=== PATIENT | female | born 1970 | race Caucasian/White ===

== ENCOUNTER → 2016-05-10 | Outpatient (CLI) | payer OTHER ==
[~2016-05-10] MED LIST: ALBUAER2 INH; LSNP/30 PO; MCR5 PO; METF-384 PO; RIVA1TAB4 PO; SIMV10TA2 PO; SITA1TAB27 PO; SNG10 PO; SYMIN160 INH; VLT500 PO; VNTHFA/IN INH; ZCR40 PO
[2016-05-10 18:16] LABS: ALB/GLOB RATIO 0.9 (0.9-2); ALKALINE PHOSPHATASE 74 U/L (45-117); ALT/SGPT 23 U/L (12-78); AST/SGOT 14 U/L (15-37); BLOOD UREA NITROGEN 14 mg/dl (7-18); BUN/CREATININE RATIO 18.1 (10-20); CALCIUM 8.9 mg/dl (8.5-10.1); CARBON DIOXIDE 26 mmol/L (21-32); CHLORIDE 105 mmol/L (98-107); CHOLESTEROL 126 mg/dl (0-200); CHOLESTEROL/HDL RATIO 1.8; CREATININE 0.77 mg/dl (0.60-1.20); GLUCOSE 224 mg/dl (70-99); HDL CHOLESTEROL 71 mg/dl; LDL CHOLESTEROL CALCULATED 24 mg/dl; POTASSIUM 4.8 mmol/L (3.5-5.1); SODIUM 140 mmol/L (136-145); THYROID STIMULATING HORMONE 0.619 uIu/ml (0.300-4.500); TRIGLYCERIDES 155 mg/dl (0-150); VERY LOW DENSITY LIPOPROT CALC 31 mg/dl
[2016-05-10 18:26] LABS: RATIO 94.5 mcg/mg (0-30.0)
[2016-05-11 06:14] LABS: ESTIMATED AVERAGE GLUCOSE 128 mg/dl; HA1C FLAG Normal (Normal)
== END | disposition home or self-care (01) ==
LOC: C.LAB1850 16:20
PROVIDERS: ATTEND Internal Medicine Endocrinology, Diabetes & Metabolism
DX: E11.29 Type 2 diabetes mellitus with other diabetic kidney complication (principal); E11.65 Type 2 diabetes mellitus with hyperglycemia; R80.9 Proteinuria, unspecified

== ENCOUNTER → 2016-07-01 | Outpatient (CLI) | payer OTHER ==
--- NOTE | 2016-07-01 16:10 | DIAGNOSTIC IMAGING REPORT ---
AP PELVIS AND BILATERAL HIPS 5 VIEWS CLINICAL HISTORY: Low back pain and bilateral hips/leg pain. COMPARISON STUDY: No previous studies for comparison. FINDINGS: No fractures are visualized. The joint space of each hip appears well-preserved for age. There are no erosive or destructive changes. Degenerative changes present within the lower lumbar spine IMPRESSION: Degenerative changes within the lower lumbar spine. Otherwise unremarkable pelvis and hips for age Electronically signed by: Raúl Cohen M.D. 07/01/2016 4:09 PM Dictated Date/Time: 07/01/2016 4:08 PM
--- NOTE | 2016-07-01 16:14 | DIAGNOSTIC IMAGING REPORT ---
SI JOINTS 3 OR MORE VIEWS CLINICAL HISTORY: Low back pain with bilateral radiculopathy. COMPARISON STUDY: CT of the abdomen and pelvis February 17, 2014. FINDINGS: The sacroiliac joints are intact without evidence for ankylosis. No fracture or suspicious lesion is identified by radiography. There is minimal arthritis of the sacroiliac joints. IMPRESSION: Minimal arthritis of the sacroiliac joints. Electronically signed by: Silvino Arreaga M.D. 07/01/2016 4:12 PM Dictated Date/Time: 07/01/2016 4:11 PM
== END | disposition home or self-care (01) ==
LOC: C.RAD1850 15:34
PROVIDERS: ATTEND Nurse Practitioner
DX: M54.40 Lumbago with sciatica, unspecified side (principal)

== ENCOUNTER → 2016-08-23 | Outpatient (CLI) | payer OTHER ==
[2016-08-23 17:59] LABS: ESTIMATED AVERAGE GLUCOSE 134 mg/dl; HA1C FLAG Normal (Normal)
[2016-08-23 18:00] LABS: ALT/SGPT 24 U/L (12-78); CREATININE 0.76 mg/dl (0.60-1.20)
== END | disposition home or self-care (01) ==
LOC: C.LABBFT 15:44
PROVIDERS: ATTEND Physician Assistant
DX: E11.65 Type 2 diabetes mellitus with hyperglycemia (principal)

== ENCOUNTER 2016-12-21 17:05 | Observation (INO) | payer OTHER ==
[~2016-12-21] VITALS: Ht 152.4 cm; Wt 78.0 kg
[~2016-12-21 17:05] MED LIST changes: -VNTHFA/IN INH; -ZCR40 PO
[2016-12-21] MEDS ORDERED: SODIUM CHLORIDE 0.9% 1000ML 1,000 ML IV SCH (17:40)
[2016-12-21 18:18] LABS: BASO % 0.4 %; BASO ABS # 0.03 K/uL (0-0.2); COMPLETE YES; EOS % 2.6 %; HEMATOCRIT 42.8 % (37-47); IG% 0.3 %; LYMPH % 30.4 %; LYMPH ABS # 2.08 K/uL (1.2-3.4); MEAN CELL VOLUME 91.6 fL (80-100); MEAN CORPUSCULAR HEMOGLOBIN 31.5 pg (25-34); MEAN CORPUSCULAR HGB CONC 34.3 g/dl (32-36); MEAN PLATELET VOLUME 9.9 fL (7.4-10.4); MONO % 7.3 %; PLATELET COUNT 179 K/uL (130-400); RED BLOOD COUNT 4.67 M/uL (4.2-5.4); WHITE BLOOD COUNT 6.85 K/uL (4.8-10.8)
--- NOTE | 2016-12-21 18:21 | DIAGNOSTIC IMAGING REPORT ---
HEAD CT NONCONTRAST CT DOSE: 537.48 mGy.cm HISTORY: Stroke symptoms. TECHNIQUE: Multiaxial CT images of the head were performed without the use of intravenous contrast. Automated exposure control was utilized for this study. A dose lowering technique was utilized adhering to the principles of ALARA. Comparison: None. Findings: Mild mucosal thickening within the ethmoid air cells. The mastoid air cells are clear. The calvarium and skull base are intact. The ventricles and sulci are within normal limits. There is no mass, hematoma, midline shift, or acute infarct. Impression: No acute intracranial abnormality. Electronically signed by: Mark Simmons M.D. 12/21/2016 6:19 PM Dictated Date/Time: 12/21/2016 6:17 PM
[2016-12-21 18:29] LABS: PROTHROMBIN TIME (PATIENT) 10.6 SECONDS (9.0-12.0)
[2016-12-21 18:43] LABS: BLOOD UREA NITROGEN 17 mg/dl (7-18); BUN/CREATININE RATIO 28.4 (10-20); CALCIUM 8.5 mg/dl (8.5-10.1); CARBON DIOXIDE 29 mmol/L (21-32); CHLORIDE 105 mmol/L (98-107); GLUCOSE 158 mg/dl (70-99); POTASSIUM 4.3 mmol/L (3.5-5.1); SODIUM 138 mmol/L (136-145)
[2016-12-21] MEDS ORDERED: VNTHFA/IN INH (18:46)
[2016-12-21] MEDS ORDERED: SNG10 PO (18:46)
[2016-12-21] MEDS ORDERED: ZCR40 PO (18:46)
[2016-12-21 18:47] LABS: CKMB/CK RATIO 1.8 (0-3.0)
[2016-12-21 19:15] LABS: URINE APPEARANCE CLEAR (CLEAR); URINE BILIRUBIN NEG (NEG); URINE COLOR YELLOW; URINE NITRITE NEG (NEG); URINE SPECIFIC GRAVITY 1.016 (1.000-1.030); UROBILINOGEN NEG (NEG); ZZUR CULT IF INDIC CLEAN CATCH NO
[2016-12-21 19:16] LABS: MANUAL MICROSCOPIC REQUIRED? NO; REVIEW REQ? NO
--- NOTE | 2016-12-21 19:49 | History and Physical ---
History & Physical Date & Time of Service: Dec 21, 2016 at 19:39 Chief Complaint: Dizzy, Nausea, Vision Blurry Primary Care Physician: Rehan Horner M.D. History of Present Illness Source: patient 46 y/o F Hx HTN, DM2, hypercoagulable state, smoker. Pt states that since this AM she has felt like she was drunk. She has had intermittent difficulty with balance, vision and has exhibited slurred speech as well. Her symptoms are not apparent on arrival to the ER. She denies CP, SOB, N/V, dysuria. Initial EKG reveals a RBBB which is new for this pt. 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 Smoking Status: Current Every Day Smoker Drug Use: none Occupational Status: employed Multi-Drug Resistant Organisms History of MDRO: No Allergies Coded Allergies: No Known Allergies (Verified , 12/21/16) Home Medications Scheduled Albuterol Hfa (Ventolin Hfa), 2-4 PUFFS INH Q6H Budesonide/Formoterol Fumarate (Symbicort 160/4.5 Inhaler), 2 PUFF INH BID Lisinopril (Zestril), 30 MG PO BID Metformin Hcl (Glucophage), 1,000 MG PO BID Montelukast Sod (Montelukast Sodium), 1 TAB PO DAILY Rivaroxaban (Xarelto), 20 MG PO HS Simvastatin (Simvastatin), 1 TAB PO HS Valacyclovir HCl (Valacyclovir HCl), 500 MG PO DAILY Review of Systems Constitutional: No fever, No chills, No sweats Eyes: + worsening of vision, No eye pain ENT: No hearing loss, No unusual epistaxis, No nasal symptoms Respiratory: No cough, No sputum, No wheezing Cardiovascular: No chest pain, No orthopnea, No PND Abdomen: No pain, No nausea, No vomiting Musculoskeletal: No joint pain Genitourinary - Female: No dysuria, No urinary frequency, No urinary urgency Neurologic: + vertigo, + balance problems, + problem reported (slurred speech reported ), No memory loss, No paralysis, No weakness Psychiatric: No depression symptoms Endocrine: No fatigue Hematologic / Lymphatic: No abnormal bleeding/bruising Integumentary: No rash Allergic / Immunologic: No environmental allergies Physical Exam Vital Signs Date Time Temp Pulse Resp B/P (MAP) Pulse Ox O2 Delivery O2 Flow Rate FiO2 12/21/16 19:31 86 12/21/16 19:00 86 18 130/86 96 Room Air 12/21/16 18:00 86 141/88 80 131/87 89 120/82 12/21/16 18:00 96 Room Air 12/21/16 17:10 36.8 92 18 136/85 93 Room Air General Appearance: WD/WN, no apparent distress Head: normocephalic Eyes: normal inspection ENT: normal ENT inspection, pharynx normal Neck: supple, no JVD Respiratory/Chest: chest non-tender, lungs clear, normal breath sounds Cardiovascular: regular rate, rhythm, no edema, no gallop Abdomen/GI: normal bowel sounds, non tender, soft Back: normal inspection, no CVA tenderness, no muscle spasm, normal range of motion Extremities/Musculoskelatal: normal inspection, no calf tenderness, normal capillary refill, no pedal edema, normal range of motion 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, no motor/sensory deficits, alert, normal mood/affect, normal reflexes, oriented x 3 Skin: normal color, warm/dry, no rash Diagnostics Laboratory Results Results Past 24 Hours Test 12/21/16 17:45 12/21/16 17:50 12/21/16 18:23 Range/Units Urine Color YELLOW Urine Appearance CLEAR CLEAR Urine pH 7.0 4.5-7.5 Urine Specific [place] 1.016 1.000-1.030 Urine Protein NEG NEG Urine Glucose (UA) TRACE NEG Urine Ketones NEG NEG Urine Occult Blood NEG NEG Urine Nitrite NEG NEG Urine Bilirubin NEG NEG Urine Urobilinogen NEG NEG Urine Leukocyte Esterase NEG NEG White Blood Count 6.85 4.8-10.8 K/uL Red Blood Count 4.67 4.2-5.4 M/uL Hemoglobin 14.7 12.0-16.0 g/dL Hematocrit 42.8 37-47 % Mean Corpuscular Volume 91.6 80-100 fL Mean Corpuscular Hemoglobin 31.5 25-34 pg Mean Corpuscular Hemoglobin Concent 34.3 32-36 g/dl Platelet Count 179 130-400 K/uL Mean Platelet Volume 9.9 7.4-10.4 fL Neutrophils (%) (Auto) 59.0 % Lymphocytes (%) (Auto) 30.4 % Monocytes (%) (Auto) 7.3 % Eosinophils (%) (Auto) 2.6 % Basophils (%) (Auto) 0.4 % Neutrophils # (Auto) 4.04 1.4-6.5 K/uL Lymphocytes # (Auto) 2.08 1.2-3.4 K/uL Monocytes # (Auto) 0.50 0.11-0.59 K/uL Eosinophils # (Auto) 0.18 0-0.5 K/uL Basophils # (Auto) 0.03 0-0.2 K/uL RDW Standard Deviation 46.1 36.4-46.3 fL RDW Coefficient of Variation 13.8 11.5-14.5 % Immature Granulocyte % (Auto) 0.3 % Immature Granulocyte # (Auto) 0.02 0.00-0.02 K/uL Prothrombin Time 10.6 9.0-12.0 SECONDS Prothromb Time International Ratio 1.0 0.9-1.1 Activated Partial Thromboplast Time 27.1 21.0-31.0 SECONDS Partial Thromboplastin Ratio 1.0 Sodium Level 138 136-145 mmol/L Potassium Level 4.3 3.5-5.1 mmol/L Chloride Level 105 98-107 mmol/L Carbon Dioxide Level 29 21-32 mmol/L Anion Gap 4.0 3-11 mmol/L Blood Urea Nitrogen 17 7-18 mg/dl Creatinine 0.60 0.60-1.20 mg/dl Est Creatinine Clear Calc Drug Dose 105.9 ml/min Estimated GFR () 124.9 Estimated GFR (Non- 107.8 BUN/Creatinine Ratio 28.4 10-20 Random Glucose 158 70-99 mg/dl Calcium Level 8.5 8.5-10.1 mg/dl Total Creatine Kinase 62 26-192 U/L Creatine Kinase MB 1.1 0.5-3.6 ng/ml Creatine Kinase MB Ratio 1.8 0-3.0 Troponin I < 0.015 0-0.045 ng/ml Bedside Glucose 132 70-90 mg/dl Diagnostic Radiology Findings: Mild mucosal thickening within the ethmoid air cells. The mastoid air cells are clear. The calvarium and skull base are intact. The ventricles and sulci are within normal limits. There is no mass, hematoma, midline shift, or acute infarct. EKG Sinus RBBB - new Impression Assessment and Plan 46 y/o F Hx HTN, DM2, hypercoagulable state, smoker. Pt states that since this AM she has felt like she was drunk. She has had intermittent difficulty with balance, vision and has exhibited slurred speech as well. Her symptoms are not apparent on arrival to the ER. She denies CP, SOB, N/V, dysuria. Initial EKG reveals a RBBB which is new for this pt. 1) Vertigo - visual and speech disturbances - pt admitted with a CVA protocol - ASA added to her Xarelto, placed on a Statin- pending MRI/MRA, neuro consult. 2) DM - placed on SS 3) Asthma - cont prescribed inhalers - this more likely represents COPD 4) Hypercoagulable - DVT/PE - cont Xarelto 5) HTN - Lisinopril held for CVA r/o 6) Lectured extensively on the hazards of smoking 7) As she is diabetic and has a new RBBB we will obtain an echo Full code - Xarelto prophylaxis Total time for this admit including review of records , meds , EKG , imaging - discussion with pt and ER attending 36 min Level of Care Telemetry Resuscitation Status FULL RESUSCITATION VTE Prophylaxis Given or contraindicated: Unfractionated heparin SQ
[2016-12-21] MEDS ORDERED: PHARMACIST DISCHARGE MED REC CONSULT PRN (20:00)
[2016-12-21 20:05] LABS: THYROID STIMULATING HORMONE 0.769 uIu/ml (0.300-4.500)
[2016-12-21] MEDS ORDERED: ACETAMINOPHEN 325 MG TAB PO PRN (20:30)
[2016-12-21] MEDS ORDERED: ALUMINUM/MAGNESIUM/SIMETH (MAALOX MAX) 30 ML UDC PO PRN (20:30)
[2016-12-21] MEDS ORDERED: ONDANSETRON INJ 2 MG/ML 2 ML VIAL IV PRN (20:30)
[2016-12-21] MEDS ORDERED: MAGNESIUM HYDROXIDE SUSP 30 ML UDC PO PRN (20:30)
[2016-12-21] MEDS ORDERED: POLYETHYLENE (MIRALAX) 17 GM PACK PO PRN (20:45)
[2016-12-21] MEDS ORDERED: RIVAROXABAN 20 MG TAB PO SCH (21:00)
[2016-12-21] MEDS ORDERED: SIMVASTATIN 40 MG TAB PO SCH (21:00)
[2016-12-21] MEDS ORDERED: LISINOPRIL 10 MG TAB PO SCH (21:00)
[2016-12-21] MEDS ORDERED: IV FLUIDS COMPLETED PRN (21:15)
[2016-12-21] MEDS ORDERED: GADAVIST IV PRN (22:15)
[2016-12-21 22:25] VITALS: BP 120/76; PULSE 83; TEMP 36.4; Ht 152.4 cm; Wt 78.0 kg
--- NOTE | 2016-12-21 22:38 | DIAGNOSTIC IMAGING REPORT ---
Brain MRI WITHOUT CONTRAST HISTORY: Dizziness. Slurred speech. Stroke TECHNIQUE: Multiplanar multisequence MRI of the brain was performed without the use of contrast. COMPARISON STUDY: Head CT 12/21/2016. FINDINGS: No areas of restricted diffusion to suggest acute infarction. The midline structures are intact. There few scattered foci of T2 hyperintensity seen within the periventricular and subcortical white matter as well as the central cheri. Small retention cysts within the left maxillary sinus. Mild mucosal thickening within the left frontal sinus, ethmoid air cells, and sphenoid sinuses. The mastoid air cells are clear. The ventricles and sulci are within normal limits. The major vascular flow voids at the skull base are well-maintained. There is no mass, hematoma, or midline shift. The orbits are unremarkable. IMPRESSION: 1. No acute intracranial abnormality. 2. A few scattered punctate foci of T2 hyperintensity seen within the subcortical and periventricular white matter as well as the cheri. This is nonspecific but can be seen in the setting of mild microvascular ischemic change. A demyelinating disease, Lyme disease, or less likely vasculitis could also have a similar appearance. Electronically signed by: Mark Simmons M.D. 12/21/2016 10:36 PM Dictated Date/Time: 12/21/2016 10:29 PM
--- NOTE | 2016-12-21 22:42 | DIAGNOSTIC IMAGING REPORT ---
Brain MRA HISTORY: Dizziness Stroke - Attention to [place] of [place] TECHNIQUE: 3-D [id number] MRA of the brain was performed without contrast. COMPARISON STUDY: None. FINDINGS: Visualized intracranial internal carotid arteries, distal vertebral arteries, and basilar artery are widely patent. There is no significant stenosis, occlusion, or aneurysm seen within the bilateral ACAs, MCAs, or letter of credit clerk. IMPRESSION: No significant stenosis, occlusion, or aneurysm within the upper [place] of [place]. Electronically signed by: Mark Simmons M.D. 12/21/2016 10:40 PM Dictated Date/Time: 12/21/2016 10:36 PM
--- NOTE | 2016-12-21 22:45 | DIAGNOSTIC IMAGING REPORT ---
NECK MRA HISTORY: Dizziness. Slurred speech. Stroke TECHNIQUE: [id number] and gadolinium-enhanced MRA of the neck was performed both before and after the intravenous administration of contrast. All measurements were calculated based on NASCET criteria. COMPARISON STUDY: None. FINDINGS: The aortic arch and proximal great vessels are widely patent. There is no significant stenosis, occlusion, or dissection identified within the bilateral common carotid, internal carotid, or vertebral arteries. The right vertebral artery is slightly hypoplastic in comparison to the left. This is considered to be a normal variant. IMPRESSION: No significant stenosis, occlusion, or dissection identified within the carotid or vertebral arteries. Electronically signed by: Mark Simmons M.D. 12/21/2016 10:44 PM Dictated Date/Time: 12/21/2016 10:41 PM
[2016-12-21] MEDS: BUDESONIDE/FORMOTEROL FUMARATE 160/4.5 60 PUFFS/INHALER INH SCH (23:03)
[2016-12-21] MEDS: ALBUTEROL HFA 8 GM INHALER INH SCH (23:03)
[2016-12-21] MEDS ORDERED: LANTUS PER UNIT CHARGE SC STA (23:13)
[2016-12-21 23:45] VITALS: BP 134/79; PULSE 85; TEMP 36.4; O2SAT 91
[2016-12-22] MEDS ORDERED: GLUCAGON FOR INJ 1 MG VIAL SQ PRN (00:15)
[2016-12-22] MEDS ORDERED: DEXTROSE 50% 50 ML SYR IV PRN (00:15)
[2016-12-22] MEDS ORDERED: GLUCOSE 10 TABS/TUBE PO PRN (00:15)
[2016-12-22] MEDS ORDERED: GLUCOSE 40% GEL 15 GM TUBE PO PRN (00:15)
[2016-12-22] MEDS: INSULIN GLARGINE SOLOSTAR 100 UNITS/ML 3 ML PEN SC SCH ×2 (00:15→08:07)
--- NOTE | 2016-12-22 00:27 | EMERGENCY ROOM VISIT NOTE ---
History First contact with patient: 17:23 Chief Complaint: DIZZY Stated Complaint: ABNORMAL EKG, TIA Nursing Triage Summary: pt c/o dizziness, "feeling drunk," jittery, nausea, having hard time focusing since noon. "the inside of my head doesn't feel right." History of Present Illness The patient is a 46 year old female who presents to the Emergency Room via private vehicle coming by daughter with complaints of "dizzy, nausea, vision blurring". The patient states that on 11 AM today she developed dizziness, tripped, and noted that she was stumbling around and could barely get to the chair to sit down. She states that she was diabetic, and thought perhaps her blood sugar was low found to be 98. She ate some food, and was up to 120 was not feeling any better. She checked her blood pressure is 170/83. She states that she started feeling little bit better. She states that when she lays down she feels much more nauseous. She states that she feels like her insides are jittery. She has associated nausea. She also has an associated feeling of a fire pit in the middle of her stomach. She denies any fevers, chills, chest pain or shortness of breath. She currently takes Xarelto for clots in the leg. Review of Systems A complete 10-point Review of Systems was discussed with the patient, with pertinent positives and negatives listed in the History of Present Illness. All remaining Review of Systems questions can be considered negative unless otherwise specified. Past Medical/Surgical History Medical Problems: (1) Asthma (2) Diabetes (3) Dyslipidemia (4) EKG, abnormal (5) HTN (hypertension) (6) Nondisplaced fracture of left great toe (7) Personal history of DVT (deep vein thrombosis) (8) TIA (transient ischemic attack) (9) Work related injury Surgical Problems: (1) History of delivery Family History Diabetes mellitus Kidney disease Kidney stones Social History Smoking Status: Current Every Day Smoker Alcohol Use: none Drug Use: none Housing Status: lives with family Occupation Status: employed Current/Historical Medications Scheduled Albuterol Hfa (Ventolin Hfa), 2-4 PUFFS INH Q6H Budesonide/Formoterol Fumarate (Symbicort 160/4.5 Inhaler), 2 PUFF INH BID Lisinopril (Zestril), 30 MG PO BID Metformin Hcl (Glucophage), 1,000 MG PO BID Montelukast Sod (Montelukast Sodium), 1 TAB PO DAILY Rivaroxaban (Xarelto), 20 MG PO HS Simvastatin (Simvastatin), 1 TAB PO HS Valacyclovir HCl (Valacyclovir HCl), 500 MG PO DAILY Physical Exam Vital Signs Date Time Temp Pulse Resp B/P (MAP) Pulse Ox O2 Delivery O2 Flow Rate FiO2 12/21/16 19:31 86 12/21/16 19:00 86 18 130/86 96 Room Air 12/21/16 18:00 86 141/88 80 131/87 89 120/82 12/21/16 18:00 96 Room Air 12/21/16 17:10 36.8 92 18 136/85 93 Room Air Pain Rating (0-10): 0 Physical Exam VITAL SIGNS - Vital signs and nursing notes were reviewed.Stable. GENERAL - 46-year-old female appearing her stated age who is in no acute distress. Communicates well with provider and answers questions appropriately. SKIN - Without rashes. HEAD - NC/AT. EYES - PERRL with EOMI bilaterally. Sclera anicteric. EARS - No deformities of external structures noted on gross examination bilaterally. No pain elicited with palpation of the tragus bilaterally. External auditory canals without discharge or otorrhea. Tympanic membranes pearly garcia without retraction or bulging. No fluid or purulent material visualized behind the TM. Handle of malleus, umbo, cone of light, pars tensa/ flaccid all easily visualized. NOSE - Midline and without cyanosis. No epistaxis or purulent drainage noted. Septum midline without deviation or septal hematoma noted. MOUTH/OROPHARYNX - Without perioral cyanosis. Buccal mucosa pink and moist and without leukoplakia. Tongue midline with equal elevation of palate bilaterally. No tonsillar hypertrophy, erythema, or exudates noted. [] dentition noted. NECK - Neck with FROM. Supple to palpation. no lymphadenopathy noted. No nuchal rigidity. LUNGS - Chest wall symmetric without accessory muscle use, intercostals retractions, or central cyanosis. Normal vesicular breath sounds CTA B/L. No wheezes, rales, or rhonchi appreciated. CARDIAC - RRR with S1/S2. No murmur, rubs, or gallops appreciated. ABDOMEN - Abdominal contour without pulsations or visible masses. BS normoactive all four quadrants. No tenderness, palpable masses, hepatosplenomegaly, or ascites noted. EXTREMITIES - No clubbing or peripheral cyanosis. No pretibial edema present. She is neurovascularly intact in the extremities. +5/5 strength noted in UE/LE bilaterally. NEUROLOGIC - Cranial nerves II through XII grossly intact. Sensory intact to light touch throughout. Patellar reflexes +2/4. PSYCH - A&Ox3 and cooperates fully with examiner. Pt is very pleasant and interacts well with examiner. Medical Decision & Procedures ER Provider Diagnostic Interpretation: HEAD CT NONCONTRAST CT DOSE: 537.48 mGy.cm HISTORY: Stroke symptoms. TECHNIQUE: Multiaxial CT images of the head were performed without the use of intravenous contrast. Automated exposure control was utilized for this study. A dose lowering technique was utilized adhering to the principles of ALARA. Comparison: None. Findings: Mild mucosal thickening within the ethmoid air cells. The mastoid air cells are clear. The calvarium and skull base are intact. The ventricles and sulci are within normal limits. There is no mass, hematoma, midline shift, or acute infarct. Impression: No acute intracranial abnormality. Electronically signed by: Mark Simmons M.D. 12/21/2016 6:19 PM Dictated Date/Time: 12/21/2016 6:17 PM Laboratory Results 12/21/16 17:50 Red Blood Count 4.67, Mean Corpuscular Volume 91.6, Mean Corpuscular Hemoglobin 31.5, Mean Corpuscular Hemoglobin Concent 34.3, Mean Platelet Volume 9.9, Neutrophils (%) (Auto) 59.0, Lymphocytes (%) (Auto) 30.4, Monocytes (%) (Auto) 7.3, Eosinophils (%) (Auto) 2.6, Basophils (%) (Auto) 0.4, Neutrophils # (Auto) 4.04, Lymphocytes # (Auto) 2.08, Monocytes # (Auto) 0.50, Eosinophils # (Auto) 0.18, Basophils # (Auto) 0.03 12/21/16 17:50 Test 12/21/16 17:45 12/21/16 17:50 12/21/16 18:23 Urine Color YELLOW Urine Appearance CLEAR (CLEAR) Urine pH 7.0 (4.5-7.5) Urine Specific [place] 1.016 (1.000-1.030) Urine Protein NEG (NEG) Urine Glucose (UA) TRACE (NEG) Urine Ketones NEG (NEG) Urine Occult Blood NEG (NEG) Urine Nitrite NEG (NEG) Urine Bilirubin NEG (NEG) Urine Urobilinogen NEG (NEG) Urine Leukocyte Esterase NEG (NEG) White Blood Count 6.85 K/uL (4.8-10.8) Red Blood Count 4.67 M/uL (4.2-5.4) Hemoglobin 14.7 g/dL (12.0-16.0) Hematocrit 42.8 % (37-47) Mean Corpuscular Volume 91.6 fL (80-100) Mean Corpuscular Hemoglobin 31.5 pg (25-34) Mean Corpuscular Hemoglobin Concent 34.3 g/dl (32-36) Platelet Count 179 K/uL (130-400) Mean Platelet Volume 9.9 fL (7.4-10.4) Neutrophils (%) (Auto) 59.0 % Lymphocytes (%) (Auto) 30.4 % Monocytes (%) (Auto) 7.3 % Eosinophils (%) (Auto) 2.6 % Basophils (%) (Auto) 0.4 % Neutrophils # (Auto) 4.04 K/uL (1.4-6.5) Lymphocytes # (Auto) 2.08 K/uL (1.2-3.4) Monocytes # (Auto) 0.50 K/uL (0.11-0.59) Eosinophils # (Auto) 0.18 K/uL (0-0.5) Basophils # (Auto) 0.03 K/uL (0-0.2) RDW Standard Deviation 46.1 fL (36.4-46.3) RDW Coefficient of Variation 13.8 % (11.5-14.5) Immature Granulocyte % (Auto) 0.3 % Immature Granulocyte # (Auto) 0.02 K/uL (0.00-0.02) Prothrombin Time 10.6 SECONDS (9.0-12.0) Prothromb Time International Ratio 1.0 (0.9-1.1) Activated Partial Thromboplast Time 27.1 SECONDS (21.0-31.0) Partial Thromboplastin Ratio 1.0 Anion Gap 4.0 mmol/L (3-11) Est Creatinine Clear Calc Drug Dose 105.9 ml/min Estimated GFR () 124.9 Estimated GFR (Non- 107.8 BUN/Creatinine Ratio 28.4 (10-20) Calcium Level 8.5 mg/dl (8.5-10.1) Total Creatine Kinase 62 U/L (26-192) Creatine Kinase MB 1.1 ng/ml (0.5-3.6) Creatine Kinase MB Ratio 1.8 (0-3.0) Troponin I < 0.015 ng/ml (0-0.045) Thyroid Stimulating Hormone (TSH) 0.769 uIu/ml (0.300-4.500) Bedside Glucose 132 mg/dl (70-90) Medications Administered Medications (Trade) Dose Ordered Sig/Samara Route Start Time Stop Time Status Last Admin Dose Admin Sodium Chloride 1,000 ml @ 50 mls/hr Q20H IV 12/21/16 17:40 12/21/16 22:29 DC 12/21/16 18:28 50 MLS/HR Medical Decision Patient was seen and evaluated as above. After obtaining a thorough history and physical examination IV access was initiated, and the above workup was performed. Patient presents to us today with dizziness, as well as a sensation that she is drunk. She denies taking any illicit medications or drugs. She is sure she did not overdose on her medication. She is accompanied by her daughter. Bedside EKG reveals a new right bundle-branch block. No evidence of ST segment elevation myocardial infarction. CBC reveals no leukocytosis or anemia. Coags are normal. CMP reveals elevated glucose at 158. Otherwise unremarkable. TSH and remarkable. Troponin negative. Urine negative. CT of the head is negative for acute process. There is concern the patient may be experiencing CVA-like symptoms, however she is not a candidate for TPA as the time window has passed by the time she arrived to the hospital. There is also concern over her neurologic comorbidities that this could also be heart related. I do believe that the new right bundle-branch block and patient and management is warranted. This was discussed with the attending physician. Please refer to further documentation regarding her stay. In evaluation treatment this patient following differential diagnoses were entertained: CA, PE, TIA, vertigo, among others. Impression Primary Impression: Dizziness Additional Impression: EKG, abnormal Departure Information Dispostion Admitted as an inpatient Condition FAIR Referrals Rehan Horner M.D. (PCP) Forms HOME CARE DOCUMENTATION FORM, IMPORTANT VISIT INFORMATION Patient Instructions My [facility] Problem Qualifiers
[2016-12-22 03:02] VITALS: BP 92/57; PULSE 78; TEMP 36.8; O2SAT 90
[2016-12-22] MEDS: ALBUTEROL HFA 8 GM INHALER INH SCH (06:00)
[2016-12-22] MEDS ORDERED: INSULIN ASPART 100 UNITS/ML 3 ML PEN SC SCH (06:30)
[2016-12-22 07:39] VITALS: BP 127/77; PULSE 78; TEMP 36.4; O2SAT 96
[2016-12-22] MEDS: BUDESONIDE/FORMOTEROL FUMARATE 160/4.5 60 PUFFS/INHALER INH SCH (07:44)
[2016-12-22 07:48] LABS: ESTIMATED AVERAGE GLUCOSE 117 mg/dl; HA1C FLAG Normal (Normal)
[2016-12-22 08:00] VITALS: O2SAT 96
[2016-12-22 08:11] LABS: BASO % 0.5 %; BASO ABS # 0.03 K/uL (0-0.2); COMPLETE YES; EOS % 2.5 %; HEMATOCRIT 41.9 % (37-47); IG% 0.5 %; LYMPH % 27.3 %; LYMPH ABS # 1.56 K/uL (1.2-3.4); MEAN CELL VOLUME 92.3 fL (80-100); MEAN CORPUSCULAR HEMOGLOBIN 31.7 pg (25-34); MEAN CORPUSCULAR HGB CONC 34.4 g/dl (32-36); MONO % 8.2 %; PLATELET COUNT 159 K/uL (130-400); RED BLOOD COUNT 4.54 M/uL (4.2-5.4); WHITE BLOOD COUNT 5.71 K/uL (4.8-10.8)
[2016-12-22 08:41] LABS: CREATININE 0.64 mg/dl (0.60-1.20); POTASSIUM 4.3 mmol/L (3.5-5.1)
[2016-12-22] MEDS ORDERED: PERFLUTREN LIPID MICROSPHERE (DEFINITY) IV ONE (08:41)
[2016-12-22] MEDS ORDERED: ATORVASTATIN 20 MG TAB PO SCH ×2 (09:00→21:00)
[2016-12-22] MEDS ORDERED: ASPIRIN 81 MG ECTAB PO SCH ×2 (09:00→21:00)
[2016-12-22] MEDS ORDERED: MONTELUKAST SOD 10 MG TAB PO SCH ×2 (09:00→21:00)
--- NOTE | 2016-12-22 09:05 | Neurology Consultation ---
Neurology Consultation Date of Consultation: Dec 22, 2016. Attending Physician: Kvng Cam MD, PhD Primary Care Physician: Rehan Horner M.D. Reason for Consultation: Episode of dizziness and other symptoms potentially consistent with TIA History of Present Illness Source: patient, hospital records The patient is a 46-year-old female who presented to the emergency department yesterday complaining of an episode of dizziness with associated nausea and blurry vision that began yesterday morning at around 11 AM. She recalls having some difficulty walking and diaphoresis at that time as well. The majority of the symptoms resolved by the time she was evaluated in the emergency department although she continued to report nausea. Prior to symptom onset she had been working around the house and recalls working outside hanging clothes on a line. She does complain of some ear fullness although denies associated pain or hearing loss. Past medical history significant for asthma, diabetes mellitus, DVT currently taking Xarelto. Electrocardiogram reveals a right total branch block which is a new finding for her. A brain MRI reveals a few scattered foci of increased T2/FLAIR signal within the subcortical, periventricular, and pontine location most suggestive of chronic microvascular ischemic change. I reviewed the images as well as the radiologist's interpretation of this test and agree. The patient is an every day smoker and has other cardiovascular risk factors including hyperlipidemia and hypertension. An MRA of the head and neck are unremarkable. Past Medical/Surgical History Medical Problems: (1) Dizziness Status: Acute (2) Dyslipidemia Status: Chronic (3) HTN (hypertension) Status: Chronic (4) Personal history of DVT (deep vein thrombosis) Status: Chronic Family History Family history notable for diabetes mellitus Social History Smoking Status: Current every day smoker Drug Use: none Housing Status: lives with family Occupation Status: employed Allergies Coded Allergies: No Known Allergies (Verified , 12/21/16) Current Inpatient Medications Current Inpatient Medications Medications (Trade) Dose Ordered Sig/Samara Route Start Time Stop Time Status Last Admin Dose Admin Albuterol (Ventolin Hfa Inhaler) 2 puffs Q6 INH 12/22/16 00:00 01/21/17 00:00 Budesonide/ Formoterol Fumarate (Symbicort 160/ 4.5 Inh) 2 puffs BID INH 12/21/16 21:00 01/20/17 20:59 12/22/16 07:44 2 PUFFS Lisinopril (Zestril Tab) 30 mg BID PO 12/21/16 21:00 01/20/17 20:59 12/21/16 23:04 30 MG Montelukast Sodium (Singulair Tab) 10 mg DAILY PO 12/22/16 09:00 01/21/17 08:59 12/21/16 23:20 10 MG Rivaroxaban (Xarelto Tab) 20 mg HS PO 12/21/16 21:00 01/20/17 20:59 12/21/16 23:04 20 MG Simvastatin (Zocor Tab) 40 mg HS PO 12/21/16 21:00 01/20/17 20:59 12/21/16 23:03 40 MG Valacyclovir HCl (Valtrex Tab) 500 mg DAILY PO 12/22/16 09:00 01/01/17 08:59 12/21/16 23:19 500 MG Atorvastatin Calcium (Lipitor Tab) 20 mg QAM PO 12/22/16 09:00 01/21/17 08:59 Miscellaneous Information (Pharmacist Discharge Med Rec Consult) 1 ea UD PRN N/A 12/21/16 20:00 01/20/17 19:59 Aspirin (Ecotrin Tab) 81 mg QAM PO 12/22/16 09:00 01/21/17 08:59 Acetaminophen (Tylenol Tab) 650 mg Q4H PRN PO 12/21/16 20:30 01/20/17 20:29 Al Hydrox/Mg Hydrox/Simethicone (Maalox Max Susp) 15 ml Q4H PRN PO 12/21/16 20:30 01/20/17 20:29 Magnesium Hydroxide (Milk Of Magnesia Susp) 30 ml Q12H PRN PO 12/21/16 20:30 01/20/17 20:29 Ondansetron HCl (Zofran Inj) 4 mg Q6H PRN IV 12/21/16 20:30 01/20/17 20:29 Polyethylene (Miralax Powder Packet) 17 gm DAILY PRN PO 12/21/16 20:45 01/20/17 20:44 Miscellaneous (Iv Fluids Completed) 1 ea PRN PRN N/A 12/21/16 21:15 12/21/17 21:14 Gadobutrol (Gadavist) 7 mmol UD PRN IV 12/21/16 22:15 12/25/16 22:14 Insulin Aspart (novoLOG ASPART) SLIDING SCALE G... ACHS SC 12/22/16 06:30 01/21/17 06:29 12/22/16 08:06 3 UNITS Insulin Glargine (Lantus Solostar Pen) 10 units BID SC 12/22/16 00:15 01/21/17 00:14 12/22/16 08:07 10 UNITS Glucose (Glucose 40% Gel) 15-30 GRAMS 15 GRAMS... UD PRN PO 12/22/16 00:15 01/21/17 00:14 Glucose (Glucose Chew Tab) 4-8 Tablets 4 Tabl... UD PRN PO 12/22/16 00:15 01/21/17 00:14 Dextrose (Dextrose 50% 50ML Syringe) 25-50ML OF 50% DW IV FOR... UD PRN IV 12/22/16 00:15 01/21/17 00:14 Glucagon (Glucagon Inj) 1 mg UD PRN SQ 12/22/16 00:15 01/21/17 00:14 Review of Systems Constitutional: No fever or chills Eyes: No vision loss or diplopia ENT: As per history of present illness Cardiovascular: No chest pain or palpitations Neurological: As per history of present illness A full 10 point review of systems was obtained in this patient with pertinent positives and negatives described in the history of present illness and otherwise listed above. All remaining systems reviewed and are negative. Physical Exam Vital Signs (Past 24 Hrs): Date Time Temp Pulse Resp B/P (MAP) Pulse Ox O2 Delivery O2 Flow Rate FiO2 12/22/16 07:39 36.4 78 16 127/77 (94) 96 Room Air 12/22/16 04:00 Room Air 12/22/16 03:02 36.8 78 18 92/57 (69) 90 Room Air 12/22/16 00:00 Room Air 12/21/16 23:45 36.4 85 20 134/79 (97) 91 Room Air 12/21/16 22:25 36.4 83 20 120/76 Room Air 98.0 12/21/16 22:01 85 20 131/81 95 Room Air 12/21/16 19:31 86 12/21/16 19:00 86 18 130/86 96 Room Air 12/21/16 18:00 86 141/88 80 131/87 89 120/82 12/21/16 18:00 96 Room Air 12/21/16 17:10 36.8 92 18 136/85 93 Room Air The patient is a well-developed, well-nourished female. She is sitting up comfortably in bed. The patient is alert and oriented to person place and time. Recent and remote memory intact. Attention and concentration normal. Patient exhibits a normal spontaneous speech pattern. She exhibits an age-appropriate fund of knowledge and normal vocabulary. Visual roldan full to confrontation. Visual acuity normal. Pupils equal round reactive to light and accommodation. Eye movements normal. Facial sensation intact. There is no facial droop or facial weakness. Hearing intact to finger rub bilaterally. Palate elevates to midline. Shoulder shrug intact bilaterally. Tongue protrudes to midline. Sensation intact to light touch, temperature, vibration, and proprioception for the arms and legs. Deep tendon reflexes are intact and symmetrical for the arms and legs. There is no dysdiadochokinesia or dysmetria with finger to nose or heel to gutierrez. Ophthalmoscopic examination reveals normal-appearing optic disks and posterior segments. No papilledema or hemorrhages. Carotid pulses normal bilaterally, no bruits to auscultation. Gait and station normal. Muscle strength normal. Muscle tone normal. No atrophy. No abnormal movements observed. Laboratory Results Past 24 Hours: 12/22/16 07:36 Red Blood Count 4.54, Mean Corpuscular Volume 92.3, Mean Corpuscular Hemoglobin 31.7, Mean Corpuscular Hemoglobin Concent 34.4, Mean Platelet Volume 10.0, Neutrophils (%) (Auto) 61.0, Lymphocytes (%) (Auto) 27.3, Monocytes (%) (Auto) 8.2, Eosinophils (%) (Auto) 2.5, Basophils (%) (Auto) 0.5, Neutrophils # (Auto) 3.48, Lymphocytes # (Auto) 1.56, Monocytes # (Auto) 0.47, Eosinophils # (Auto) 0.14, Basophils # (Auto) 0.03 12/22/16 07:36 Test 12/21/16 17:45 12/21/16 17:50 12/22/16 07:24 12/22/16 07:36 Urine Color YELLOW Urine Appearance CLEAR (CLEAR) Urine pH 7.0 (4.5-7.5) Urine Specific [place] 1.016 (1.000-1.030) Urine Protein NEG (NEG) Urine Glucose (UA) TRACE (NEG) Urine Ketones NEG (NEG) Urine Occult Blood NEG (NEG) Urine Nitrite NEG (NEG) Urine Bilirubin NEG (NEG) Urine Urobilinogen NEG (NEG) Urine Leukocyte Esterase NEG (NEG) Prothrombin Time 10.6 SECONDS (9.0-12.0) Prothromb Time International Ratio 1.0 (0.9-1.1) Activated Partial Thromboplast Time 27.1 SECONDS (21.0-31.0) Partial Thromboplastin Ratio 1.0 Estimated Average Glucose 117 mg/dl Hemoglobin A1c 5.7 % (4.5-5.6) Total Creatine Kinase 62 U/L (26-192) Creatine Kinase MB 1.1 ng/ml (0.5-3.6) Creatine Kinase MB Ratio 1.8 (0-3.0) Troponin I < 0.015 ng/ml (0-0.045) Thyroid Stimulating Hormone (TSH) 0.769 uIu/ml (0.300-4.500) Bedside Glucose 119 mg/dl (70-90) White Blood Count 5.71 K/uL (4.8-10.8) Red Blood Count 4.54 M/uL (4.2-5.4) Hemoglobin 14.4 g/dL (12.0-16.0) Hematocrit 41.9 % (37-47) Mean Corpuscular Volume 92.3 fL (80-100) Mean Corpuscular Hemoglobin 31.7 pg (25-34) Mean Corpuscular Hemoglobin Concent 34.4 g/dl (32-36) Platelet Count 159 K/uL (130-400) Mean Platelet Volume 10.0 fL (7.4-10.4) Neutrophils (%) (Auto) 61.0 % Lymphocytes (%) (Auto) 27.3 % Monocytes (%) (Auto) 8.2 % Eosinophils (%) (Auto) 2.5 % Basophils (%) (Auto) 0.5 % Neutrophils # (Auto) 3.48 K/uL (1.4-6.5) Lymphocytes # (Auto) 1.56 K/uL (1.2-3.4) Monocytes # (Auto) 0.47 K/uL (0.11-0.59) Eosinophils # (Auto) 0.14 K/uL (0-0.5) Basophils # (Auto) 0.03 K/uL (0-0.2) RDW Standard Deviation 47.2 fL (36.4-46.3) RDW Coefficient of Variation 13.9 % (11.5-14.5) Immature Granulocyte % (Auto) 0.5 % Immature Granulocyte # (Auto) 0.03 K/uL (0.00-0.02) Anion Gap 5.0 mmol/L (3-11) Est Creatinine Clear Calc Drug Dose 99.3 ml/min Estimated GFR () 122.3 Estimated GFR (Non- 105.5 BUN/Creatinine Ratio 20.0 (10-20) Calcium Level 9.0 mg/dl (8.5-10.1) Impression This is a 46-year-old female who experienced an episode of dizziness, nausea, diaphoresis and blurry vision yesterday morning at around 11 AM and had some associated difficulty with walking. The symptoms had nearly resolved by the time she was evaluated in the emergency department and have completely resolved this morning. She has no neurological deficits on examination and no significant abnormalities on MRI of the brain or MR angiography of the head and neck. The cause of these symptoms is unclear. The relevance of the recently discovered right bundle branch block is unclear. The episode occurred after she had been outside hanging clothing on a clothesline which could have been a triggering factor for vertigo. Her vertebral arteries are patent on angiography. Ultimately, I would probably not diagnose this patient with TIA. Her diagnosis is probably more appropriately labeled vertigo of unspecified cause. Plan I have no further recommendations for this patient at this time. I would defer to the hospitalist physician in determining the need for further cardiac evaluation of this patient's recently discovered right bundle branch block. It may be reasonable to arrange an outpatient evaluation with ENT. Please contact me if I may be of further assistance.
[2016-12-22] MEDS ORDERED: NURSING VERBAL MED ORDER ONE (09:45)
[2016-12-22 10:22] LABS: LYME DISEASE AB IGG NEG (NEG); LYME DISEASE AB IGM NEG (NEG)
--- NOTE | 2016-12-22 11:11 | Discharge Instructions ---
Discharge Instructions Date of Service Dec 22, 2016. Admission Reason for Admission: Abnormal Ekg, Tia Discharge Discharge Diagnosis / Problem: vertigo Discharge Goals Goal(s): Decrease discomfort, Improve function, Increase independence, Improve disease control, Learn about illness, Diagnostic testing, Therapeutic intervention, Prevent Disease Progression, Specific goals Activity Recommendations Activity Limitations: resume your previous activity . 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 - call your primary care physician OR go to local emergency room if has any fever/chill, chest pain, shortness of breathing, nausea/vomiting/abdominal pain , facial droop/slurry speech/local weakness, or if has any questions. - fall precaution - diet as instructed - you should understand that it is important to follow up the above instruction , and "not following the above instruction" may cause delayed or missed care of your medical conditions which may cause permanent organ damage and even . Current Hospital Diet Patient's current hospital diet: AHA Diet (Heart Healthy), Diabetes Type 2 Diet Discharge Diet Recommended Diet: AHA Diet (Heart Healthy), Diabetes Type 2 Diet Procedures Procedures Performed: no Pending Studies Studies pending at discharge: no Laboratory Results Hemoglobin A1c Test 12/21/16 17:50 Range/Units Estimated Average Glucose 117 mg/dl Hemoglobin A1c 5.7 H 4.5-5.6 % Lipid Panel Test 12/22/16 07:36 Range/Units Triglycerides Level 74 0-150 mg/dl Cholesterol Level 108 0-200 mg/dl HDL Cholesterol 53 mg/dl Cholesterol/HDL Ratio 2.0 LDL Cholesterol, Calculated 40 mg/dl Medical Emergencies . Who to Call and When: Medical Emergencies: If at any time you feel your situation is an emergency, please call 911 immediately. . Non-Emergent Contact Non-Emergency issues call your: Primary Care Provider . . "Provider Documentation" section prepared by Kvng Cam. . VTE Core Measure Inpt VTE Proph given/why not?: Unfractionated heparin SQ
--- NOTE | 2016-12-22 11:31 | ECHOCARDIOGRAM REPORT ---
*NOTICE TO RECEIVING DEMOCRAT AGENCY This information is strictly Confidential and protected under [place] law. [place] law prohibits you from making any further disclosure of this information unless further disclosure is expressly permitted by the written consent of the person to whom it pertains or is authorized by law. A general authorization for the release of medical or other information is not sufficient for this purpose. Hospital accepts no responsibility if the information is made available to any other person, INCLUDING THE PATIENT. Interpretation Summary * Name: EDUARD MOELLER Study Date: 12/22/2016 06:57 AM BP: 92/57 mmHg * Patient Location: [facility] HR: 77 * : 1970 (M/d/yyyy) Gender: Female Height: 60 in * Age: 46 yrs Ethnicity: CA Weight: 171 lb * Ordering Physician: Shelton Soto * Performed By: Tory Hernandez * * Reason For Study: ABNORMAL EKG * BSA: 1.7 m2 * -- Conclusions -- * Left ventricular systolic function is normal. * Grade I diastolic dysfunction, (abnormal relaxation pattern). * No significant valve disease Procedure Details * A complete two-dimensional transthoracic echocardiogram was performed (2D, M-mode, Doppler and color flow Doppler). * The study was technically difficult. * There were technical limitations due to patient'sbody habitus * A contrast injection of Definity was performed to improve assessment of LV function. * Contrast was injected into an intravenous site in the right arm. * One vial of Definity ultrasound contrast was diluted in normal saline to a total volume of 10 ml. A total of '3' ml of solution was administered during imaging. * Lot # [id number] of Definity utilized for procedure. * Expiration date 12/23. * The attending nurse who injected the contrast agent was CARIDAD RIOS RN. Left Ventricle * The left ventricle is normal in size. * There is normal left ventricular wall thickness. * Ejection Fraction = 65-70%. * Left ventricular systolic function is normal. * Grade I diastolic dysfunction, (abnormal relaxation pattern). * The left ventricular wall motion is normal. Right Ventricle * The right ventricle is normal in size and function. * The right ventricular systolic function is normal as assessed by tricuspid annular plane systolic excursion (TAPSE) (normal >1.5 cm). Atria * The left atrial size is normal. * Right atrial size is normal. Mitral Valve * The mitral valve is grossly normal. * Significant mitral regurgitation is absent. Tricuspid Valve * The tricuspid valve is not well visualized. * Significant tricuspid regurgitation is absent. Aortic Valve * The aortic valve is not well visualized. * No hemodynamically significant valvular aortic stenosis. * There is no significant aortic regurgitation. Great Vessels * The aortic root and proximal ascending aorta are normal sized. Pericardium/Pleural * There is no pericardial effusion. MMode 2D Measurements and Calculations IVSd 1.0 cm IVSs 1.5 cm LVIDd 4.7 cm LVIDs 3.0 cm LVPWd 1.2 cm LVPWs 1.6 cm IVS/LVPW 0.86 FS 36.3 % EDV(Teich) 103.5 ml ESV(Teich) 35.2 ml EF(Teich) 66.0 % EDV(cubed) 105.3 ml ESV(cubed) 27.2 ml EF(cubed) 74.1 % % IVS thick 40.5 % % LVPW thick 31.5 % LV mass(C)d 194.8 grams LV mass(C)dI 111.5 grams/m\S\2 LV mass(C)s 162.9 grams LV mass(C)sI 93.3 grams/m\S\2 CO(Teich) 5.3 l/min CI(Teich) 3.0 l/min/m\S\2 SV(Teich) 68.2 ml SI(Teich) 39.1 ml/m\S\2 CO(cubed) 6.0 l/min CI(cubed) 3.4 l/min/m\S\2 SV(cubed) 78.1 ml SI(cubed) 44.7 ml/m\S\2 ACS 1.3 cm asc Aorta Diam 3.0 cm LVOT diam 1.9 cm LVOT area 2.7 cm\S\2 LVAd ap4 30.3 cm\S\2 LVLd ap4 7.8 cm EDV(MOD-sp4) 96.0 ml LVAs ap4 14.4 cm\S\2 LVLs ap4 6.5 cm ESV(MOD-sp4) 29.0 ml EF(MOD-sp4) 69.8 % LVAd ap2 28.2 cm\S\2 LVLd ap2 7.4 cm EDV(MOD-sp2) 89.0 ml LVAs ap2 13.8 cm\S\2 LVLs ap2 5.7 cm ESV(MOD-sp2) 28.0 ml EF(MOD-sp2) 68.5 % CO(MOD-sp4) 5.2 l/min CI(MOD-sp4) 3.0 l/min/m\S\2 SV(MOD-sp4) 67.0 ml SI(MOD-sp4) 38.4 ml/m\S\2 CO(MOD-sp2) 4.7 l/min CI(MOD-sp2) 2.7 l/min/m\S\2 SV(MOD-sp2) 61.0 ml SI(MOD-sp2) 34.9 ml/m\S\2 Doppler Measurements and Calculations MV E max sergio 68.1 cm/sec MV A max sergio 78.5 cm/sec MV E/A 0.87 MV dec time 0.26 sec Ao V2 max 126.9 cm/sec Ao max PG 6.4 mmHg Ao max PG (full) 2.6 mmHg TOYA(V,A) 2.1 cm\S\2 TOYA(V,D) 2.1 cm\S\2 LV V1 max PG 3.8 mmHg LV V1 max 97.7 cm/sec PA V2 max 72.6 cm/sec PA max PG 2.1 mmHg
[2016-12-22 12:00] VITALS: O2SAT 97
[2016-12-22 12:16] VITALS: BP 129/81; PULSE 78; TEMP 36.8; O2SAT 92
[2016-12-22 12:20] VITALS: BP 129/81; PULSE 78; TEMP 36.8; O2SAT 92
--- NOTE | 2016-12-22 17:00 | Discharge Summary ---
Discharge Summary Date of Service Dec 22, 2016. Discharge Summary Admission Date: Dec 21, 2016 at 20:24 Discharge Date: Dec 22, 2016 Discharge Disposition: Home Principal Diagnosis: vertigo for unknown reason Problems/Secondary Diagnoses: right bundle branch block., and Grade I diastolic dysfunction, (abnormal relaxation pattern) per echo studies (1) Dyslipidemia Status: Chronic (2) HTN (hypertension) Status: Chronic (3) Personal history of DVT (deep vein thrombosis) Status: Chronic Procedures: No Consultations: Neurologist Medication Reconciliation Continued Medications: Albuterol Hfa (Ventolin Hfa) 200 Puffs/62504 Mcg Aers 2-4 PUFFS INH Q6H Budesonide/Formoterol Fumarate (Symbicort 160/4.5 Inhaler) 120 Puffs/ Aero 2 PUFF INH BID, #10 Lisinopril (Zestril) 30 Mg Tab 30 MG PO BID Metformin Hcl (Glucophage) 1,000 Mg Tab 1000 MG PO BID Montelukast Sod (Montelukast Sodium) 10 Mg Tab 1 TAB PO DAILY, #30 Rivaroxaban (Xarelto) 20 Mg Tab 20 MG PO HS, TAB Simvastatin (Simvastatin) 40 Mg Tab 1 TAB PO HS Valacyclovir HCl (Valacyclovir HCl) 500 Mg Tab 500 MG PO DAILY Discharge Exam Doing well, up and walk, no complaining, no more balance problem, no facial droop was noticed , no slurry speech,, no weakness Physical Exam: General Appearance: WD/WN, no apparent distress Eyes: normal inspection, PERRL ENT: normal ENT inspection, hearing grossly normal Neck: supple, no adenopathy Respiratory/Chest: chest non-tender, lungs clear, normal breath sounds Cardiovascular: regular rate, rhythm, no edema Abdomen / GI: normal bowel sounds, non tender, soft, no organomegaly Extremities: normal inspection, no calf tenderness Neurologic/Psychiatric: transplant coordinator II-XII nml as tested, no motor/sensory deficits , alert, normal mood/affect, normal reflexes, oriented x 3 Skin: normal color, warm/dry Hospital Course 46-year-old female was admitted on 12/21/2016 with an episode of dizziness, nausea, diaphoresis and blurry vision Per report , an episode of dizziness, nausea, diaphoresis and blurry vision yesterday morning at around 11 AM and had some associated difficulty with walking. symptoms had almost resolved by the time she was evaluated in the emergency department and have completely resolved this morning. Today upon evaluation she has no neurological deficits on examination a Evaluation has been done include: MRI of the brain or MR angiography of the head and neck. Echocardiogram were done as well: Per report, Grade I diastolic dysfunction, ( abnormal relaxation pattern) The cause of these symptoms is unclear. Neuro saw the patient , he does not agreethe diagnose this patient with TIA. Her diagnosis is probably more appropriately labeled vertigo of unspecified cause. 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 - call your primary care physician OR go to local emergency room if has any fever/chill, chest pain, shortness of breathing, nausea/vomiting/abdominal pain , facial droop/slurry speech/local weakness, or if has any questions. - fall precaution - diet as instructed - you should understand that it is important to follow up the above instruction , and "not following the above instruction" may cause delayed or missed care of your medical conditions which may cause permanent organ damage and even . Total Time Spent: Greater than 30 minutes This includes examination of the patient, discharge planning, medication reconciliation, and communication with other providers. Discharge Instructions Please refer to the electronic Patient Visit Report (Discharge Instructions) for additional information. Additional Copies To Rehan Horner M.D.
== END 2016-12-22 13:20 | disposition home or self-care (01) ==
LOC: C.EDB 17:06 → C.MED 20:24 → ENRESERV 20:43
PROVIDERS: ADMIT Internal Medicine; ATTEND Hospitalist
DX: R42 Dizziness and giddiness (principal); I45.10 Unspecified right bundle-branch block; R94.31 Abnormal electrocardiogram [ECG] [EKG]; R11.0 Nausea; R61 Generalized hyperhidrosis; H53.8 Other visual disturbances; E11.9 Type 2 diabetes mellitus without complications; I10 Essential (primary) hypertension; Z86.718 Personal history of other venous thrombosis and embolism; F17.210 Nicotine dependence, cigarettes, uncomplicated; Z79.01 Long term (current) use of anticoagulants; Z86.73 Personal history of transient ischemic attack (TIA), and cerebral infarction without residual deficits; Z79.899 Other long term (current) drug therapy; J45.909 Unspecified asthma, uncomplicated

== ENCOUNTER → 2017-01-20 | Outpatient (CLI) | payer OTHER ==
[~2017-01-20] MED LIST changes: -ALBUAER2 INH; -MCR5 PO; -SIMV10TA2 PO; -SITA1TAB27 PO; +VNTHFA/IN INH; +ZCR40 PO
--- NOTE | 2017-01-20 15:03 | DIAGNOSTIC IMAGING REPORT ---
RIGHT FOOT 3 VIEWS HISTORY: Right foot pain. COMPARISON: None. FINDINGS: There is no fracture or dislocation. Soft tissues are unremarkable. No radiopaque foreign bodies. The Lisfranc joint is intact. Incidental note is made of an os navicularis. Plantar heel spur. Focal calcification within the plantar fascia. Mild hammertoe deformities within the second through fourth toes. IMPRESSION: No fracture or dislocation of the right foot. Mild hammertoe deformities within the second through fourth toes. Electronically signed by: Mark Simmons M.D. 01/20/2017 3:01 PM Dictated Date/Time: 01/20/2017 3:00 PM
== END | disposition home or self-care (01) ==
LOC: C.RAD1850 14:44
PROVIDERS: ATTEND Podiatrist Foot & Ankle Surgery
DX: L40.0 Psoriasis vulgaris (principal)

== ENCOUNTER → 2017-02-15 | Outpatient (CLI) | payer OTHER ==
--- NOTE | 2017-02-16 09:47 | MAMMOGRAPHY REPORT ---
BILATERAL DIGITAL SCREENING MAMMOGRAM TOMOSYNTHESIS WITH CAD: 02/15/2017 CLINICAL HISTORY: Routine screening. Patient has no complaints. TECHNIQUE: Breast tomosynthesis in addition to standard 2D mammography was performed. Current study was also evaluated with a Computer Aided Detection (CAD) system. COMPARISON: Comparison is made to exams dated: 03/21/2012 mammogram - [facility], 04/10/2007, 04/10/2007 mammogram, and 11/16/2000 mammogram - [facility]. BREAST COMPOSITION: There are scattered areas of fibroglandular density in both breasts. There are involutional changes compared to prior mammograms. FINDINGS: 2 stable benign rim calcifications in the superior right breast. No suspicious mass, archi tectural distortion or cluster of microcalcifications is seen. IMPRESSION: ACR BI-RADS CATEGORY 1: NEGATIVE There is no mammographic evidence of malignancy. A 1 year screening mammogram is recommended. The pa tient will receive written notification of the results. Approximately 10% of breast cancers are not detected with mammography. A negative mammographic report should not delay biopsy if a clinically suggestive mass is present. Farideh Romero M.D. ay/:02/15/2017 15:14:21 Manager [employer]: [employer] PRUITT(Reginald)(Irene)([place]), [facility] letter sent: Normal 1/2 BI-RADS Code: ACR BI-RADS Category 1: Negative
== END | disposition home or self-care (01) ==
LOC: C.MAMM 13:53
PROVIDERS: ATTEND Obstetrics & Gynecology
DX: Z12.31 Encounter for screening mammogram for malignant neoplasm of breast (principal)

== ENCOUNTER → 2017-06-21 | Outpatient (CLI) | payer OTHER ==
[2017-06-21 18:03] LABS: ALT/SGPT 25 U/L (12-78); CHOLESTEROL 127 mg/dl (0-200)
[2017-06-21 18:13] LABS: LDL CHOLESTEROL CALCULATED 40 mg/dl
[2017-06-22 06:24] LABS: HEMOGLOBIN A1C 5.6 % (4.5-5.6)
== END | disposition home or self-care (01) ==
LOC: C.LABBFT 11:41
PROVIDERS: ATTEND Physician Assistant
DX: E11.9 Type 2 diabetes mellitus without complications (principal); E78.00 Pure hypercholesterolemia, unspecified

== ENCOUNTER 2024-01-11 16:52 | Inpatient (IN) ==
[2024-01-11 18:04] LABS: Basophils # (auto) 0.04 K/uL (0.00-0.20); Basophils % (auto) 0.6 %; Eosinophils # (auto) 0.09 K/uL (0.00-0.50); Eosinophils % (auto) 1.3 %; Hematocrit (blood only) 53.5 % (37.0-47.0); Hemoglobin 16.1 g/dl (12.0-16.0); Immature Granulocytes # (auto) 0.04 K/uL (0.01-0.20); Immature Granulocytes % (auto) 0.6 %; Lymphocytes # (auto) 1.13 K/uL (1.20-3.40); Lymphocytes % (auto) 16.6 %; Mean Corpuscular Hemoglobin 27.2 pg (25.0-34.0); Mean Corpuscular Hgb Conc 30.1 g/dL (32.0-36.0); Mean Corpuscular Volume 90.2 fL (80.0-100.0); Mean Platelet Volume 10.1 fL (9.4-12.4); Monocytes % (auto) 8.8 %; Neutrophils % (auto) 72.1 %; Platelet Count 185 K/uL (130-400); RDW Coefficient of Variation 16.9 % (11.5-14.5); RDW Standard Deviation 53.1 fL (36.4-46.3); Red Blood Count 5.93 M/uL (4.20-5.40)
--- NOTE | 2024-01-11 18:05 | Emergency Department Note ---
Impression & Plan Acute hypoxemic respiratory failure, Acute dyspnea, Elevated brain natriuretic peptide (BNP) level, Non-ST elevation OK (NSTEMI) ED Provider Note HISTORY OF PRESENT ILLNESS: Patient is a 53-year-old female presenting with hypoxia. Patient was seen at pulmonary clinic today and was found to be hypoxic. She ambulated at pulmonary clinic and had saturations of 79%. She was referred to the emergency department for further evaluation. Patient reports has been feeling progressively more short of breath over the last few weeks. She denies any supplemental oxygen use at baseline. She does report a history of a DVT but no PE history. She is on Xarelto and denies any missed doses. Denies any chest pain with the shortness of breath. Denies any recent cough or fevers. ROS: as above PHYSICAL EXAM: Constitutional: Patient appears in no acute distress. HENT: Head: Normocephalic and atraumatic. Eyes: EOMI, PERRL Mouth/Throat: Mucous membranes moist. Neck: Trachea midline. Neck supple. Cardiovascular: RRR, No murmurs, rubs or gallops. Intact distal pulses. Pulmonary/Chest: No respiratory distress. Breath sounds clear and equal bilaterally. No wheezes or rales. Abdominal: Abdomen soft, no tenderness, rebound or guarding. Musculoskeletal: No edema, tenderness or deformity noted. Skin: Warm and dry. No rash, erythema, pallor or cyanosis Psychiatric: Appropriate mood and affect for situation. Neurological: Alert and keenly responsive. CN II-XII grossly intact, moving all extremities equally and fully. MDM: - Vitals signs showed hypoxia. Patient placed on 3 L nasal cannula with improvement in her saturations. - History obtained via patient. History as above. - Chronic conditions affecting care: HLD; COPD; HTN; DM-2 - Differential diagnoses include, but are not limited to: Congestive heart failure; acute coronary syndrome; COPD/asthma exacerbation; pulmonary edema; pulmonary embolism; pneumonia; pneumothorax; viral syndrome - Order placed for continuous cardiac monitoring. At this time, monitor showed rate of 93 bpm with normal sinus rhythm, per my interpretation. - External medical records reviewed. Pulmonary office visit note dated for today was reviewed. Patient was noting to have saturations of 71% after 6- minute walk test. She never fully recovered and maintain saturations in the low 80s. - EKG interpreted by myself showed normal sinus rhythm. Rate 96 bpm. QT 346. No acute ischemic changes. Noted have an incomplete right bundle branch block. - Laboratory workup interpreted by myself showed normal WBC; normal PT/INR; normal D-dimer; stable electrolytes; elevated troponin (22.9); elevated BNP (287); negative hCG - Repeat troponin trending down to 20.0 - VBG shows hypercarbia (pCO2 61) - Viral respiratory panel negative - CXR negative for pneumonia, per my interpretation - Considered CT PE, but patient has a negative D-dimer and reports no missed doses of her Xarelto. - NSTEMI likely type II in nature given patient's hypoxia. - Patient requiring 2 L nasal cannula to keep her oxygen saturations above 90%. Will admit to hospital service. - Discussion was had with rn field case manager about patient's case and need for admission - Hospitalist, Dr. Becker, consulted for admission - [facility]. I have personally spent 61 minutes of critical care time in the direct management of this patient. This includes bedside care, interpretation of diagnostic studies, and testing, discussion with consultants, patient, and family members, and other required patient management activities. This 61 minutes is in excess of all separately billable procedures. ASSESSMENT AND PLAN: Diagnosis: Acute dyspnea; acute hypoxic respiratory failure; elevated BNP; NSTEMI Plan: Admit Past Med/Surg History Problem List (Updated 01/11/24 @ 22:15 by Elly Broussard MD) Non-ST elevation OK (NSTEMI) (Acute) Elevated brain natriuretic peptide (BNP) level (Acute) Acute dyspnea (Acute) Acute hypoxemic respiratory failure (Acute) Dyspnea Type 2 diabetes mellitus Cigarette smoker Gross hematuria Microalbuminuria due to type 2 diabetes mellitus COPD (chronic obstructive pulmonary disease) Asthma (Chronic) Right ovarian cyst (Acute) TIA (transient ischemic attack) Hypertension (Chronic) Kidney stones (Acute) Anxiety Dyslipidemia Obesity Medical History (Updated 01/11/24 @ 22:15 by Elly Broussard MD) Vitamin D deficiency Lichen sclerosus et atrophicus ETD (eustachian tube dysfunction) Trigger thumb, left thumb Piriformis syndrome Vertigo Asthma exacerbation Hypoxia Pelvic pain Abnormal vaginal bleeding Work related injury Nondisplaced fracture of left great toe Surgical History History of tooth extraction History of delivery Family History Mother Diabetes Primary hypercoagulable state FHx: thromboembolic disease Kidney stones, calcium oxalate Other Blood clot in vein Denies family history of Ovarian cancer Prostate cancer Myocardial infarction Breast cancer Social History (Updated 01/03/24 @ 15:25 by Phyllis Mix LPN) Smoking Status: Current some day smoker Tobacco Type: Cigarettes Age Started Using Tobacco: 13; packs per day: 0.75; Cigarettes Per Day: 1/2 PPD; Second Hand Exposure: Yes; Do You Dip or Chew Tobacco: No; Hx Alcohol Use: No Hx Substance Use: No Preferred Language: Indonesian Communication Ability: Effective Ict Support Engineer Required: No Beliefs That Will Affect Care: None Current Living Situation: Alone Current Living Situation Comment: SON LIVES WITH PT current occupational status: employed Feels Safe at Home: Yes Diet: regular caffeine: Yes Dental Care, Regularly: No Physical Activity Frequency: Does not Exercise Assistive Devices: Denture - Upper, Denture - Lower and Glasses Allergies Allergies Allergy/AdvReac Type Severity Reaction Status Date / Time nitrofurantoin Allergy Unknown Rash Verified 01/03/24 15:26 [From Macrobid] tiotropium AdvReac Severe increased Verified 01/03/24 15:26 [From Spiriva with SOB HandiHaler] Home Meds Previous Rx's Medication Instructions Recorded ipratropium bromide 0.02 % 2.5 ml inhalation Q6H PRN 06/10/19 solution for inhalation shortness of breath or wheezing #150 mL simvastatin 40 mg tablet 40 mg PO DAILY #30 tabs 03/07/23 montelukast 10 mg tablet 10 mg PO DAILY #90 tabs 03/31/23 paroxetine HCl 10 mg tablet 10 mg PO DAILY #90 tabs 04/12/23 fluticasone fur. 100 mcg-umeclid 1 inh inhalation DAILY 90 days #90 04/26/23 62.5 mcg-vilant 25 mcg puffs inhalat.powder (Trelegy Ellipta) albuterol sulfate 90 mcg/actuation 2 inh inhalation Q6H PRN shortness 05/11/23 breath activated powder inhaler of breath or wheezing #1 ea valacyclovir 500 mg tablet 500 mg PO HS Cold Sores #90 tabs 05/11/23 lisinopril 20 mg tablet 20 mg PO BID #60 tabs 06/02/23 rivaroxaban 20 mg tablet (Xarelto) 20 mg PO DAILY #90 tabs 08/16/23 dulaglutide 4.5 mg/0.5 mL 4.5 mg (0.5 mL) subcut WK #6 mL 08/23/23 subcutaneous pen injector (Trulicity) insulin detemir U-100 100 unit/mL 70 unit (0.7 mL) subcut DAILY #75 08/29/23 (3 mL) subcutaneous pen (Levemir mL FlexPen) insulin aspart U-100 100 unit/mL 10 unit (0.1 mL) subcut TID #15 mL 10/16/23 (3 mL) subcutaneous pen (Novolog FlexPen U-100 Insulin aspart) dapagliflozin propanediol 10 mg 10 mg PO DAILY #90 tabs 12/29/23 tablet (Farxiga) FreeStyle Rae 2 Sensor (flash #2 ea 01/09/24 glucose sensor) metformin 1,000 mg tablet 1,000 mg PO BID #60 tabs 01/10/24 Results & Data (ED) Vital Signs Vital Signs - 24 hr 01/11/24 16:56 01/11/24 17:58 01/11/24 19:44 Temperature 36.3 C L Temperature Source Temporal Artery Scan Pulse Rate 99 H Pulse Rate [Apical] 95 H 85 Pulse Rhythm [Apical] Regular Pulse Strength [Apical] Normal Respiratory Rate 16 18 18 Respiratory Effort / Characteristics Non-Labored Spontaneous Non-Labored Non-Labored Spontaneous Respiratory Depth Normal Normal Normal Respiratory Pattern Regular Regular Blood Pressure 132/86 Blood Pressure [Left Arm] 113/79 116/74 Blood Pressure Mean 101 Blood Pressure Mean [Left Arm] 90 88 Blood Pressure Position [Left Arm] Sitting Pulse Oximetry 85 L 97 93 Oxygen Delivery Method Room Air Nasal Cannula Nasal Cannula Oxygen Flow Rate 2 2 Sepsis Recent Fever Within 48 Hours No Sepsis New/Unexplained Change in Mental Status No Sepsis Action Taken by Nursing No Action Required 01/11/24 19:49 01/11/24 21:00 Temperature Temperature Source Pulse Rate 91 H Pulse Rate [Apical] 93 H Pulse Rhythm [Apical] Regular Pulse Strength [Apical] Normal Respiratory Rate 18 Respiratory Effort / Characteristics Non-Labored Spontaneous Respiratory Depth Normal Respiratory Pattern Regular Blood Pressure Blood Pressure [Left Arm] Blood Pressure Mean Blood Pressure Mean [Left Arm] Blood Pressure Position [Left Arm] Sitting Pulse Oximetry 92 Oxygen Delivery Method Nasal Cannula Oxygen Flow Rate 2 Sepsis Recent Fever Within 48 Hours Sepsis New/Unexplained Change in Mental Status Sepsis Action Taken by Nursing Laboratory Data 01/11/24 17:45 01/11/24 17:45 Lab Results 01/11/24 01/11/24 01/11/24 Range/Units 17:45 18:00 18:03 WBC 6.80 (4.8-10.8) K/ul RBC 5.93 H (4.20-5.40) M/uL Hgb 16.1 H (12.0-16.0) g/dl Hct 53.5 H (37.0-47.0) % MCV 90.2 (80.0-100.0) fL MCH 27.2 (25.0-34.0) pg MCHC 30.1 L (32.0-36.0) g/dL RDW Std Deviation 53.1 H (36.4-46.3) fL RDW Coeff of Belen 16.9 H (11.5-14.5) % Plt Count 185 (130-400) K/uL MPV 10.1 (9.4-12.4) fL Immature Gran % (Auto) 0.6 % Neut % (Auto) 72.1 % Lymph % (Auto) 16.6 % Lander % (Auto) 8.8 % Eos % (Auto) 1.3 % Baso % (Auto) 0.6 % Neut # (Auto) 4.90 (1.40-6.50) K/uL Lymph # (Auto) 1.13 L (1.20-3.40) K/uL Lander # (Auto) 0.60 H (0.11-0.59) K/uL Eos # (Auto) 0.09 (0.00-0.50) K/uL Baso # (Auto) 0.04 (0.00-0.20) K/uL Immature Gran # (Auto) 0.04 (0.01-0.20) K/uL PT 11.0 (9.0-12.0) Seconds INR 1.0 (0.9-1.1) D-Dimer 270 (0-500) ug/L FEU VBG pH 7.36 (7.36-7.41) VBG pCO2 61 H (38-50) mmHg VBG pO2 45 mmHg VBG HCO3 35 mmol/L VBG O2 Saturation 70.9 % VBG Base Excess 7.0 mEq/L Sodium 140 (136-145) mmol/L Potassium 4.5 (3.5-5.1) mmol/L Chloride 100 (98-107) mmol/L Carbon Dioxide 33 H (21-32) mmol/L Anion Gap 7 (3-11) BUN 17 (6-23) mg/dl Creatinine 0.82 (0.6-1.2) mg/dl Est Cr Clr Drug Dosing 69.6 ml/min Est GFR ( Amer) 93.4 ml/min Est GFR (Non-Af Amer) 80.6 ml/min BUN/Creatinine Ratio 20.7 H (10-20) Glucose 82 (70-99(Fasting)) mg/dl Calcium 9.2 (8.6-10.3) mg/dl Magnesium 1.9 (1.7-2.4) mg/dl Total Bilirubin 0.4 (0.2-1.0) mg/dl AST 36 (13-39) U/L ALT 45 (7-52) U/L Alkaline Phosphatase 101 (34-104) U/L Troponin I High Sens 22.9 H (0-14) pg/ml B-Natriuretic Peptide 287 H (0-100) pg/ml Total Protein 6.9 (6.0-8.3) gm/dl Albumin 4.2 (3.4-5.0) gm/dl Globulin 2.7 (2.5-4.0) gm/dl Albumin/Globulin Ratio 1.6 (0.9-2) HCG, Qual Negative (Negative) Adenovirus (PCR) Not Detected (NotDetected) B. pertussis DNA (PCR) Not Detected (NotDetected) B.parapertussis DNA PCR Not Detected (NotDetected) C. pneumoniae DNA (PCR) Not Detected (NotDetected) Coronavirus OC43 (PCR) Not Detected (NotDetected) Coronavirus HKU1 (PCR) Not Detected (NotDetected) Coronavirus 229E (PCR) Not Detected (NotDetected) SARS-CoV-2 (PCR) Not Detected (NotDetected) Coronavirus NL63 (PCR) Not Detected (NotDetected) Human Metapneumovir PCR Not Detected (NotDetected) Influenza Type A (PCR) Not Detected (NotDetected) Influenza Type B (PCR) Not Detected (NotDetected) M. pneumoniae (PCR) Not Detected (NotDetected) Parainfluenza 1 (PCR) Not Detected (NotDetected) Parainfluenza 2 (PCR) Not Detected (NotDetected) Parainfluenza 3 (PCR) Not Detected (NotDetected) Parainfluenza 4 (PCR) Not Detected (NotDetected) RSV (PCR) Not Detected (NotDetected) Entero/Rhino (PCR) Not Detected (NotDetected) 01/11/24 Range/Units 19:39 WBC (4.8-10.8) K/ul RBC (4.20-5.40) M/uL Hgb (12.0-16.0) g/dl Hct (37.0-47.0) % MCV (80.0-100.0) fL MCH (25.0-34.0) pg MCHC (32.0-36.0) g/dL RDW Std Deviation (36.4-46.3) fL RDW Coeff of Belen (11.5-14.5) % Plt Count (130-400) K/uL MPV (9.4-12.4) fL Immature Gran % (Auto) % Neut % (Auto) % Lymph % (Auto) % Lander % (Auto) % Eos % (Auto) % Baso % (Auto) % Neut # (Auto) (1.40-6.50) K/uL Lymph # (Auto) (1.20-3.40) K/uL Lander # (Auto) (0.11-0.59) K/uL Eos # (Auto) (0.00-0.50) K/uL Baso # (Auto) (0.00-0.20) K/uL Immature Gran # (Auto) (0.01-0.20) K/uL PT (9.0-12.0) Seconds INR (0.9-1.1) D-Dimer (0-500) ug/L FEU VBG pH (7.36-7.41) VBG pCO2 (38-50) mmHg VBG pO2 mmHg VBG HCO3 mmol/L VBG O2 Saturation % VBG Base Excess mEq/L Sodium (136-145) mmol/L Potassium (3.5-5.1) mmol/L Chloride (98-107) mmol/L Carbon Dioxide (21-32) mmol/L Anion Gap (3-11) BUN (6-23) mg/dl Creatinine (0.6-1.2) mg/dl Est Cr Clr Drug Dosing ml/min Est GFR ( Amer) ml/min Est GFR (Non-Af Amer) ml/min BUN/Creatinine Ratio (10-20) Glucose (70-99(Fasting)) mg/dl Calcium (8.6-10.3) mg/dl Magnesium (1.7-2.4) mg/dl Total Bilirubin (0.2-1.0) mg/dl AST (13-39) U/L ALT (7-52) U/L Alkaline Phosphatase (34-104) U/L Troponin I High Sens 20.0 H (0-14) pg/ml B-Natriuretic Peptide (0-100) pg/ml Total Protein (6.0-8.3) gm/dl Albumin (3.4-5.0) gm/dl Globulin (2.5-4.0) gm/dl Albumin/Globulin Ratio (0.9-2) HCG, Qual (Negative) Adenovirus (PCR) (NotDetected) B. pertussis DNA (PCR) (NotDetected) B.parapertussis DNA PCR (NotDetected) C. pneumoniae DNA (PCR) (NotDetected) Coronavirus OC43 (PCR) (NotDetected) Coronavirus HKU1 (PCR) (NotDetected) Coronavirus 229E (PCR) (NotDetected) SARS-CoV-2 (PCR) (NotDetected) Coronavirus NL63 (PCR) (NotDetected) Human Metapneumovir PCR (NotDetected) Influenza Type A (PCR) (NotDetected) Influenza Type B (PCR) (NotDetected) M. pneumoniae (PCR) (NotDetected) Parainfluenza 1 (PCR) (NotDetected) Parainfluenza 2 (PCR) (NotDetected) Parainfluenza 3 (PCR) (NotDetected) Parainfluenza 4 (PCR) (NotDetected) RSV (PCR) (NotDetected) Entero/Rhino (PCR) (NotDetected) Imaging Data Radiologist's Impression: Chest X-Ray 01/11/24 17:13 XR chest 1V portable HISTORY: 53 years-old Female Dyspnea acute shortness of breath COMPARISON: 09/03/2021 TECHNIQUE: AP view of the chest FINDINGS: Cardiac silhouette is enlarged. Mild subsegmental bibasilar densities. No pneumothorax or large pleural effusion. Bones appear grossly intact. IMPRESSION: 1. Mild cardiomegaly without acute process. 2. Subsegmental bibasilar densities are likely atelectatic. ACT 112: Negative or not required by law. The above report was generated using voice recognition software. It may contain grammatical, syntax or spelling errors. Electronically signed by: Kaveh Rey M.D. 01/11/2024 7:11 PM Discharge Plan Visit Data Chief Complaint: Abnormal Labs/Diagnostic Testing Stated Complaint: LOW OX ED Provider: Elly Broussard Discharge Problem: Acute hypoxemic respiratory failure, Acute dyspnea, Elevated brain natriuretic peptide (BNP) level, Non-ST elevation [place] (NSTEMI) Forms Stand Alone Forms: [facility] Prescriptions Prescriptions: No Action ipratropium bromide 0.02 % solution 2.5 ml INH Q6H PRN (Reason: shortness of breath or wheezing) Qty: 150 3RF Rx Instructions: use with levalbuterol nebulizer solution J44.1 - COPD simvastatin 40 mg tablet 40 mg PO DAILY Qty: 30 11RF montelukast 10 mg tablet 10 mg PO DAILY Qty: 90 3RF paroxetine HCl 10 mg tablet 10 mg PO DAILY Qty: 90 3RF albuterol sulfate 90 mcg/actuation aerosol powdr breath activated 2 inh inhalation Q6H PRN (Reason: shortness of breath or wheezing) Qty: 1 3RF lisinopril 20 mg tablet 20 mg PO BID Qty: 60 11RF Xarelto 20 mg tablet 20 mg PO DAILY Qty: 90 3RF Trulicity 4.5 mg/0.5 mL pen injector 4.5 mg SUBCUT WK Qty: 6 3RF Levemir FlexPen 100 unit/mL (3 mL) insulin pen 70 unit subcut DAILY Qty: 75 1RF Farxiga 10 mg tablet 10 mg PO DAILY Qty: 90 3RF (DME) FreeStyle Rae 2 Sensor Kit See Rx Instructions .ROUTE .MEDSUPPLY Qty: 2 11RF Rx Instructions: Change q 14 days to monitor blood sugars. metformin 1,000 mg tablet 1,000 mg PO BID Qty: 60 1RF Rx Instructions: Pt must keep appt for further refills Trelegy Ellipta 100-62.5-25 mcg blister with device 1 inh inhalation DAILY 90 Days Qty: 90 3RF insulin aspart U-100 [Novolog FlexPen U-100 Insulin] 100 unit/mL (3 mL) insulin pen 10 unit subcut TID Qty: 15 4RF Rx Instructions: Inject 10 units into the abdomen 10-15 minutes before meals. valacyclovir 500 mg tablet 500 mg PO HS Qty: 90 3RF Referrals Referrals: Irish Baxter MD [Primary Care Provider] -
[2024-01-11 18:15] LABS: HCO3 VBG 35 mmol/L; Oxygen Saturation VBG 70.9 %; PCO2 VBG 61 mmHg (38-50); PO2 VBG 45 mmHg; pH VBG 7.36 (7.36-7.41)
[2024-01-11 18:18] LABS: Pregnancy Test, Serum Negative (Negative)
[2024-01-11 18:20] LABS: Albumin Globulin Ratio 1.6 (0.9-2); Albumin Level 4.2 gm/dl (3.4-5.0); BUN Creatinine Ratio 20.7 (10-20); Bilirubin,Total 0.4 mg/dl (0.2-1.0); Calcium 9.2 mg/dl (8.6-10.3); Creatinine Clr Calc Pharmacy 69.6 ml/min; Est GFR (African American) 93.4 ml/min; Est GFR (Non-African American) 80.6 ml/min; Globulin 2.7 gm/dl (2.5-4.0); Magnesium 1.9 mg/dl (1.7-2.4); Potassium 4.5 mmol/L (3.5-5.1); Total Protein 6.9 gm/dl (6.0-8.3)
[2024-01-11 18:27] LABS: Troponin I High Sensitivity 22.9 pg/ml (0-14)
[2024-01-11 18:30] LABS: D Dimer 270 ug/L FEU (0-500)
--- NOTE | 2024-01-11 19:12 | XRay Report ---
XR chest 1V portable HISTORY: 53 years-old Female Dyspnea acute shortness of breath COMPARISON: 09/03/2021 TECHNIQUE: AP view of the chest FINDINGS: Cardiac silhouette is enlarged. Mild subsegmental bibasilar densities. No pneumothorax or large pleur al effusion. Bones appear grossly intact. IMPRESSION: 1. Mild cardiomegaly without acute process. 2. Subsegmental bibasilar densities are likely atelectatic. ACT 112: Negative or not required by law. The above report was generated using voice recognition software. It may contain grammatical, syntax o r spelling errors. Electronically signed by: Kaveh Rey M.D. 01/11/2024 7:11 PM
[2024-01-11 19:29] LABS: Adenovirus PCR Not Detected (NotDetected); Bordetella parapertussis PCR Not Detected (NotDetected); Bordetella pertussis PCR Not Detected (NotDetected); Chlamydia pneumoniae PCR Not Detected (NotDetected); Coronavirus 229E PCR Not Detected (NotDetected); Coronavirus CoV-2 (COVID19)PCR Not Detected (NotDetected); Coronavirus HKU1 PCR Not Detected (NotDetected); Coronavirus NL63 PCR Not Detected (NotDetected); Coronavirus OC43PCR Not Detected (NotDetected); Human Metapneumovirus PCR Not Detected (NotDetected); Influenza A PCR Not Detected (NotDetected); Influenza B PCR Not Detected (NotDetected); Mycoplasma pneumoniae PCR Not Detected (NotDetected); Parainfluenza Virus 1 PCR Not Detected (NotDetected); Parainfluenza Virus 2 PCR Not Detected (NotDetected); Parainfluenza Virus 3 PCR Not Detected (NotDetected); Parainfluenza Virus 4 PCR Not Detected (NotDetected); Respiratory Syncytial VirusPCR Not Detected (NotDetected); Rhinovirus/Enterovirus PCR Not Detected (NotDetected)
--- NOTE | 2024-01-11 22:09 | History & Physical Report ---
Date of Service January 11, 2024 Assessment & Plan (1) Acute hypoxemic respiratory failure: Plan: 53-year-old female with history of COPD presenting with 2 weeks of progressive dyspnea on exertion. Acute hypoxic respiratory failure upon arrival with saturation of 81% on room air, ambulatory saturation documented to be 71%. patient does raise concern for weight gain, edema and the feeling of "fullness and fluid" in her chest. no prior history of CHF. differential diagnosis includes COPD exacerbation, possible new CHF. Consideration to be given to pulmonary emboli however, patient states she is fully compliant with her Xarelto Admit to medical Maintain supplemental oxygen Lasix 20 mg IV x 1 dose Monitor intake and output Monitor daily weights - albuterol as needed Continue Trelegy Low threshold for CTA of the chest to assess for pulmonary emboli if patient does not improve with above therapies (2) Type 2 diabetes mellitus: Plan: chronic. Patient reports she is on 75 units of Lantus daily as well as Metformin. Last HgbA1C from 06/30/23=6.7 -Hold Meformin Lantus 30 units twice daily Insulin sliding scale Goal blood sugar 110-140 Plan Hypertension -Continue Lisinopril 20mg po BID Hyperlipidemia -Continue Simvastatin History of Present Illness Chief Complaint: shortness of breath Primary Care Provider: Irish Baxter MD 53yo female with history of COPD and tobacco use presenting to the ER at the request of Pulmonology for 2 weeks of shortness of breath. The patient does not use supplemental O2. She reports progressive dyspnea on exertion for the last two weeks. She has a stable, chronic cough which has been slightly more productive - no hemoptysis, no chest pain, no wheeze. She denies improvement with use of her inhalers or Albuterol. patient was seen in the pulmonary office today with these complaints. She was noted to be conversationally dyspneic, hypoxic at 81% on room air. 6-minute walk test attempted and patient became hypoxic to 71% after 2 minutes of ambulation. Patient was encouraged to come to the emergency room for additional workup. During my encounter, patient reports that she feels "full". She notes some swelling in her legs bilaterally as well as the feeling of fullness in her chest. She also thinks she may have gained some weight, approximately 5 pounds over the last couple of weeks. She denies chest pain or leg pain. No URI symptoms or allergy symptoms. She reports that she is fully compliant with her Xarelto and has not missed any doses In the ER patient hypoxic on room air at 81%. Supplemental oxygen placed at 2 L with improvement in oxygenation ER course: No therapies given Allergies Allergy/AdvReac Type Severity Reaction Status Date / Time nitrofurantoin Allergy Unknown Rash Verified 01/03/24 15:26 [From Macrobid] tiotropium AdvReac Severe increased Verified 01/03/24 15:26 [From Spiriva with SOB HandiHaler] Home Medications Medication Instructions Recorded Confirmed Type ipratropium bromide 0.02 % 2.5 ml inhalation Q6H PRN 06/10/19 01/03/24 Rx solution for inhalation shortness of breath or wheezing #150 mL simvastatin 40 mg tablet 40 mg PO DAILY #30 tabs 03/07/23 01/03/24 Rx montelukast 10 mg tablet 10 mg PO DAILY #90 tabs 03/31/23 01/03/24 Rx paroxetine HCl 10 mg tablet 10 mg PO DAILY #90 tabs 04/12/23 01/03/24 Rx fluticasone fur. 100 mcg-umeclid 1 inh inhalation DAILY 90 days #90 04/26/23 01/03/24 Rx 62.5 mcg-vilant 25 mcg puffs inhalat.powder (Trelegy Ellipta) albuterol sulfate 90 mcg/actuation 2 inh inhalation Q6H PRN shortness 05/11/23 01/03/24 Rx breath activated powder inhaler of breath or wheezing #1 ea valacyclovir 500 mg tablet 500 mg PO HS Cold Sores #90 tabs 05/11/23 01/03/24 Rx lisinopril 20 mg tablet 20 mg PO BID #60 tabs 06/02/23 01/03/24 Rx rivaroxaban 20 mg tablet (Xarelto) 20 mg PO DAILY #90 tabs 08/16/23 01/03/24 Rx dulaglutide 4.5 mg/0.5 mL 4.5 mg (0.5 mL) subcut WK #6 mL 08/23/23 01/03/24 Rx subcutaneous pen injector (Trulicity) insulin detemir U-100 100 unit/mL 70 unit (0.7 mL) subcut DAILY #75 08/29/23 01/03/24 Rx (3 mL) subcutaneous pen (Levemir mL FlexPen) insulin aspart U-100 100 unit/mL 10 unit (0.1 mL) subcut TID #15 mL 10/16/23 01/03/24 Rx (3 mL) subcutaneous pen (Novolog FlexPen U-100 Insulin aspart) dapagliflozin propanediol 10 mg 10 mg PO DAILY #90 tabs 12/29/23 01/03/24 Rx tablet (Farxiga) FreeStyle Rae 2 Sensor (flash #2 ea 01/09/24 Rx glucose sensor) metformin 1,000 mg tablet 1,000 mg PO BID #60 tabs 01/10/24 Rx Past Med/Surg History Problem List Non-ST elevation CA (NSTEMI) (Acute) Elevated brain natriuretic peptide (BNP) level (Acute) Acute dyspnea (Acute) Acute hypoxemic respiratory failure (Acute) Dyspnea Type 2 diabetes mellitus Cigarette smoker Gross hematuria Microalbuminuria due to type 2 diabetes mellitus COPD (chronic obstructive pulmonary disease) Asthma (Chronic) Right ovarian cyst (Acute) TIA (transient ischemic attack) Hypertension (Chronic) Kidney stones (Acute) Anxiety Dyslipidemia Obesity Medical History Vitamin D deficiency Lichen sclerosus et atrophicus ETD (eustachian tube dysfunction) Trigger thumb, left thumb Piriformis syndrome Vertigo Asthma exacerbation Hypoxia Pelvic pain Abnormal vaginal bleeding Work related injury Nondisplaced fracture of left great toe Surgical History History of tooth extraction History of delivery Family History Mother Diabetes Primary hypercoagulable state FHx: thromboembolic disease Kidney stones, calcium oxalate Other Blood clot in vein Denies family history of Ovarian cancer Prostate cancer Myocardial infarction Breast cancer Social History Smoking Status: Former smoker Tobacco Type: Cigarettes Age Started Using Tobacco: 13; packs per day: 0.75; Cigarettes Per Day: 1/2 PPD; Second Hand Exposure: Yes; Do You Dip or Chew Tobacco: No; Hx Alcohol Use: No Hx Substance Use: No Preferred Language: British Communication Ability: Effective Health Systems Analyst Required: No Beliefs That Will Affect Care: None Current Living Situation: Alone Current Living Situation Comment: SON LIVES WITH PT current occupational status: employed Feels Safe at Home: Yes Safety Concerns: Feels Safe At This Time Diet: regular caffeine: Yes Dental Care, Regularly: No Physical Activity Frequency: Does not Exercise Assistive Devices: Denture - Upper and Denture - Lower Review of Systems Review of Systems: All systems reviewed & are unremarkable except as noted in HPI & below Physical Exam Physical Exam: General: patient resting comfortably, NAD, non-toxic in appearance, AA&O x 4 Skin: warm, dry, intact, no rashes or lesions HEENT: NC/AT, PERRL, EOMI, anicteric sclera, conjunctiva without injection, external ear normal to inspection and nontender, nares patent, moist mucus membranes, dentition intact, no oropharyngeal lesions, neck supple, trachea midline, no LAD, no thyromegaly, no JVD Heart: +S1/S2, regular, no m/r/g Lungs: Diminished breath sounds bilaterally with scattered end expiratory wheezing Abd: +BS, soft, NT/ND, no masses/organomegaly/ascites Ext: warm, 2+ pulses in UE/LE bilaterally, no clubbing/cyanosis or edema Neuro: nonfocal, patient AA&O x 4, speech intact, no facial droop, moving all e xtremities on command with equal strength 5/5 Results & Data Results & Data Vital Signs (Past 12 Hours) Vital Signs Temp Pulse Pulse Resp BP BP Pulse Ox 01/11/24 21:00 93 H 18 92 01/11/24 19:49 91 H 01/11/24 19:44 85 18 116/74 93 01/11/24 17:58 95 H 18 113/79 97 01/11/24 16:56 36.3 C L 99 H 16 132/86 85 L O2 Del Method O2 Flow Rate 01/11/24 21:00 Nasal Cannula 2 01/11/24 19:49 01/11/24 19:44 Nasal Cannula 2 01/11/24 17:58 Nasal Cannula 2 01/11/24 16:56 Room Air Laboratory Results Laboratory Results WBC 6.80 K/ul (4.8-10.8) 01/11/24 17:45 RBC 5.93 M/uL (4.20-5.40) H 01/11/24 17:45 Hgb 16.1 g/dl (12.0-16.0) H 01/11/24 17:45 Hct 53.5 % (37.0-47.0) H 01/11/24 17:45 MCV 90.2 fL (80.0-100.0) 01/11/24 17:45 MCH 27.2 pg (25.0-34.0) 01/11/24 17:45 MCHC 30.1 g/dL (32.0-36.0) L 01/11/24 17:45 RDW Std Deviation 53.1 fL (36.4-46.3) H 01/11/24 17:45 RDW Coeff of Belen 16.9 % (11.5-14.5) H 01/11/24 17:45 Plt Count 185 K/uL (130-400) 01/11/24 17:45 MPV 10.1 fL (9.4-12.4) 01/11/24 17:45 Immature Gran % (Auto) 0.6 % 01/11/24 17:45 Neut % (Auto) 72.1 % 01/11/24 17:45 Lymph % (Auto) 16.6 % 01/11/24 17:45 [place] % (Auto) 8.8 % 01/11/24 17:45 Eos % (Auto) 1.3 % 01/11/24 17:45 Baso % (Auto) 0.6 % 01/11/24 17:45 Neut # (Auto) 4.90 K/uL (1.40-6.50) 01/11/24 17:45 Lymph # (Auto) 1.13 K/uL (1.20-3.40) L 01/11/24 17:45 [place] # (Auto) 0.60 K/uL (0.11-0.59) H 01/11/24 17:45 Eos # (Auto) 0.09 K/uL (0.00-0.50) 01/11/24 17:45 Baso # (Auto) 0.04 K/uL (0.00-0.20) 01/11/24 17:45 Immature Gran # (Auto) 0.04 K/uL (0.01-0.20) 01/11/24 17:45 PT 11.0 Seconds (9.0-12.0) 01/11/24 17:45 INR 1.0 (0.9-1.1) 01/11/24 17:45 D-Dimer 270 ug/L FEU (0-500) 01/11/24 17:45 VBG pH 7.36 (7.36-7.41) 01/11/24 18:03 VBG pCO2 61 mmHg (38-50) H 01/11/24 18:03 VBG pO2 45 mmHg 01/11/24 18:03 VBG HCO3 35 mmol/L 01/11/24 18:03 VBG O2 Saturation 70.9 % 01/11/24 18:03 VBG Base Excess 7.0 mEq/L 01/11/24 18:03 Sodium 140 mmol/L (136-145) 01/11/24 17:45 Potassium 4.5 mmol/L (3.5-5.1) 01/11/24 17:45 Chloride 100 mmol/L (98-107) 01/11/24 17:45 Carbon Dioxide 33 mmol/L (21-32) H 01/11/24 17:45 Anion Gap 7 (3-11) 01/11/24 17:45 BUN 17 mg/dl (6-23) 01/11/24 17:45 Creatinine 0.82 mg/dl (0.6-1.2) 01/11/24 17:45 Est Cr Clr Drug Dosing 69.6 ml/min 01/11/24 17:45 Est GFR ( Amer) 93.4 ml/min 01/11/24 17:45 Est GFR (Non-Af Amer) 80.6 ml/min 01/11/24 17:45 BUN/Creatinine Ratio 20.7 (10-20) H 01/11/24 17:45 Glucose 82 mg/dl (70-99(Fasting)) 01/11/24 17:45 POC Glucose 127 mg/dl (70-99) H 01/11/24 23:14 Calcium 9.2 mg/dl (8.6-10.3) 01/11/24 17:45 Magnesium 1.9 mg/dl (1.7-2.4) 01/11/24 17:45 Total Bilirubin 0.4 mg/dl (0.2-1.0) 01/11/24 17:45 AST 36 U/L (13-39) 01/11/24 17:45 ALT 45 U/L (7-52) 01/11/24 17:45 Alkaline Phosphatase 101 U/L (34-104) 01/11/24 17:45 Troponin I High Sens 20.0 pg/ml (0-14) H 01/11/24 19:39 B-Natriuretic Peptide 287 pg/ml (0-100) H 01/11/24 17:45 Total Protein 6.9 gm/dl (6.0-8.3) 01/11/24 17:45 Albumin 4.2 gm/dl (3.4-5.0) 01/11/24 17:45 Globulin 2.7 gm/dl (2.5-4.0) 01/11/24 17:45 Albumin/Globulin Ratio 1.6 (0.9-2) 01/11/24 17:45 HCG, Qual Negative (Negative) 01/11/24 17:45 Urine Color Yellow 01/11/24 22:55 Urine Appearance Clear (Clear) 01/11/24 22:55 Urine pH 5.5 (4.5-7.5) 01/11/24 22:55 Ur Specific [place] 1.015 (1.000-1.030) 01/11/24 22:55 Urine Protein Negative (Negative) 01/11/24 22:55 Urine Glucose (UA) 3+ (Negative) H 01/11/24 22:55 Urine Ketones Negative (Negative) 01/11/24 22:55 Urine Blood Negative (Negative) 01/11/24 22:55 Urine Nitrite Negative (Negative) 01/11/24 22:55 Urine Bilirubin Negative (Negative) 01/11/24 22:55 Urine Urobilinogen Negative (Negative) 01/11/24 22:55 Ur Leukocyte Esterase 1+ (Negative) H 01/11/24 22:55 Urine WBC (Auto) 0-5 /hpf (0-5) 01/11/24 22:55 Urine RBC (Auto) 0-2 /hpf (0-2) 01/11/24 22:55 U Hyaline Cast (Auto) 0-2 /lpf (0-2) 01/11/24 22:55 U Epithel Cells (Auto) 0-2 /hpf (0-2) 01/11/24 22:55 Urine Bacteria (Auto) None Seen (None Seen) 01/11/24 22:55 Adenovirus (PCR) Not Detected (NotDetected) 01/11/24 18:00 B. pertussis DNA (PCR) Not Detected (NotDetected) 01/11/24 18:00 B.parapertussis DNA PCR Not Detected (NotDetected) 01/11/24 18:00 C. pneumoniae DNA (PCR) Not Detected (NotDetected) 01/11/24 18:00 Coronavirus OC43 (PCR) Not Detected (NotDetected) 01/11/24 18:00 Coronavirus HKU1 (PCR) Not Detected (NotDetected) 01/11/24 18:00 Coronavirus 229E (PCR) Not Detected (NotDetected) 01/11/24 18:00 SARS-CoV-2 (PCR) Not Detected (NotDetected) 01/11/24 18:00 Coronavirus NL63 (PCR) Not Detected (NotDetected) 01/11/24 18:00 Human Metapneumovir PCR Not Detected (NotDetected) 01/11/24 18:00 Influenza Type A (PCR) Not Detected (NotDetected) 01/11/24 18:00 Influenza Type B (PCR) Not Detected (NotDetected) 01/11/24 18:00 M. pneumoniae (PCR) Not Detected (NotDetected) 01/11/24 18:00 Parainfluenza 1 (PCR) Not Detected (NotDetected) 01/11/24 18:00 Parainfluenza 2 (PCR) Not Detected (NotDetected) 01/11/24 18:00 Parainfluenza 3 (PCR) Not Detected (NotDetected) 01/11/24 18:00 Parainfluenza 4 (PCR) Not Detected (NotDetected) 01/11/24 18:00 RSV (PCR) Not Detected (NotDetected) 01/11/24 18:00 Entero/Rhino (PCR) Not Detected (NotDetected) 01/11/24 18:00 Impressions Chest X-Ray 01/11/24 17:13 XR chest 1V portable HISTORY: 53 years-old Female Dyspnea acute shortness of breath COMPARISON: 09/03/2021 TECHNIQUE: AP view of the chest FINDINGS: Cardiac silhouette is enlarged. Mild subsegmental bibasilar densities. No pneumothorax or large pleural effusion. Bones appear grossly intact. IMPRESSION: 1. Mild cardiomegaly without acute process. 2. Subsegmental bibasilar densities are likely atelectatic. ACT 112: Negative or not required by law. The above report was generated using voice recognition software. It may contain grammatical, syntax or spelling errors. Electronically signed by: Kaveh Rey M.D. 01/11/2024 7:11 PM ECG Additional Comments: EKG with normal sinus rhythm at 96 bpm, IN = 138, QRS = 82, QTc 437 incomplete right bundle branch block with suggestion of RV hypertrophy, ST and T wave abnormalities. PG Care Time/CCT Total # of Minutes Spent Total Time Spent with Patient: Total time spent is greater than 50% in coordination of care (as documented) at patient's floor/unit and/or counseling patient: Coding Level of Care Code 24789 INT INP/OBS CARE 3/75MIN Diagnoses Acute hypoxemic respiratory failure J96.01 Type 2 diabetes mellitus with diabetic microalbuminuria, with long-term current use of insulin E11.29; R80.9; Z79.4 Diabetes mellitus complication detail: with diabetic microalbuminuria Diabetes mellitus complication status: with kidney complications Diabetes mellitus technician terminal and repeater insulin use: with fci use (2) Type 2 diabetes mellitus Diabetes mellitus complication detail: with diabetic microalbuminuria Diabetes mellitus complication status: with kidney complications Diabetes mellitus fci insulin use: with technician terminal and repeater use Qualified Code(s): E11.29 - Type 2 diabetes mellitus with other diabetic kidney complication; R80.9 - Proteinuria, unspecified; Z79.4 - technician terminal and repeater (current) use of insulin
[2024-01-11] MEDS ORDERED: ONDANSETRON INJ 2 MG/ML 2 ML VIAL IV PRN (22:44)
[2024-01-11] MEDS ORDERED: DEXTROSE 50% 50 ML SYRINGE IV PRN (22:44)
[2024-01-11] MEDS ORDERED: CARBOHYDRATES FOR HYPOGLYCEMIA PO PRN (22:44)
[2024-01-11] MEDS ORDERED: GLUCOSE 40% GEL 15 GM TUBE PO PRN (22:44)
[2024-01-11] MEDS ORDERED: GLUCOSE 10 TAB/TUBE PO PRN (22:44)
[2024-01-11] MEDS ORDERED: GLUCAGON FOR INJ 1 MG VIAL SQ PRN (22:44)
[2024-01-11] MEDS: FUROSEMIDE INJ 20 MG/2 ML VIAL IV ONE (23:21)
[2024-01-11] MEDS: LANTUS PER UNIT CHARGE SQ SCH (23:21)
[2024-01-11] MEDS ORDERED: IPRATROPIUM BROMIDE NEB SOLN 0.02% 0.5MG/2.5ML VIAL INH PRN (23:23)
[2024-01-11 23:25] LABS: Appearance Urine Clear (Clear); Bacteria Urine Automated None Seen (None Seen); Bilirubin Urine Negative (Negative); Blood Urine Negative (Negative); Cast Urine Automated 0-2 /lpf (0-2); Color Urine Yellow; Epithelial Cell Urine Auto 0-2 /hpf (0-2); Glucose Urine UA 3+ (Negative); Ketones Urine Negative (Negative); Leukocyte Esterase Urine 1+ (Negative); Nitrite Urine Negative (Negative); Protein Urine Negative (Negative); RBC Urine Automated 0-2 /hpf (0-2); Specific Gravity Urine 1.015 (1.000-1.030); Urobilinogen Urine Negative (Negative); WBC Urine Automated 0-5 /hpf (0-5); pH Urine 5.5 (4.5-7.5)
[2024-01-11] MEDS ORDERED: Nursing to Pharmacy Communication SCH (23:45)
[2024-01-11] MEDS ORDERED: ALBUTEROL HFA 8 GM INHALER INH PRN (23:53)
[2024-01-12] MEDS: MONTELUKAST SODIUM 10 MG TABLET PO SCH (00:39)
[2024-01-12] MEDS: SIMVASTATIN 40 MG TAB PO SCH (00:40)
[2024-01-12] MEDS: RIVAROXABAN 20 MG TAB PO SCH (00:40)
[2024-01-12] MEDS: lisinopril 20 MG TAB PO SCH (08:13)
[2024-01-12] MEDS: UMECLIDINIUM/VILANTEROL 62.5/25MCG 7 PUFFS/INHALER INH SCH (08:14)
[2024-01-12] MEDS: PARoxetine HCL 10 MG TAB PO SCH (08:14)
[2024-01-12] MEDS: FLUTICASONE FUROATE 100MCG 14 PUFFS/INHALER INH SCH (08:15)
[2024-01-12] MEDS: INSULIN ASPART PER UNIT CHARGE SC SCH (08:33)
--- NOTE | 2024-01-12 08:39 | Electrocardiogram Report ---
Test Reason : Blood Pressure : */* mmHG Vent. Rate : 96 BPM Atrial Rate : 96 BPM P-R Int : 138 ms QRS Dur : 92 ms QT Int : 346 ms P-R-T Axes : -23 169 168 degrees QTcB Int : 437 ms Normal sinus rhythm Right bundle branch block Abnormal ECG Confirmed by Mina Roper ([id number]) on 01/12/2024 8:38:50 AM Referred By: REFERRED SELF Confirmed By: Mina Roper
[2024-01-12] MEDS ORDERED: NON-FORMULARY MEDICATION (Fluticasone-Umeclidin-Vilanter [Trelegy Ellipta] 100-62.5-25 mcg INH SCH (09:00)
[2024-01-12] MEDS: ACETAMINOPHEN 325 MG TAB PO PRN (09:30)
[2024-01-12 09:55] LABS: Hematocrit (blood only) 46.2 % (37.0-47.0); Hemoglobin 13.6 g/dl (12.0-16.0); Mean Corpuscular Hemoglobin 26.8 pg (25.0-34.0); Mean Corpuscular Hgb Conc 29.4 g/dL (32.0-36.0); Mean Corpuscular Volume 91.1 fL (80.0-100.0); Mean Platelet Volume 10.6 fL (9.4-12.4); Platelet Count 180 K/uL (130-400); RDW Coefficient of Variation 16.1 % (11.5-14.5); RDW Standard Deviation 54.2 fL (36.4-46.3); Red Blood Count 5.07 M/uL (4.20-5.40); White Blood Count 6.27 K/ul (4.8-10.8)
[2024-01-12 10:10] LABS: BUN Creatinine Ratio 19.5 (10-20); Calcium 8.5 mg/dl (8.6-10.3); Creatinine Clr Calc Pharmacy 72.9 ml/min; Est GFR (African American) 100.7 ml/min; Est GFR (Non-African American) 86.9 ml/min; Potassium 4.9 mmol/L (3.5-5.1)
--- NOTE | 2024-01-12 11:35 | XCELERA ---
[id number] [id number]
[2024-01-12] MEDS: FUROSEMIDE INJ 20 MG/2 ML VIAL IV ONE (12:27)
--- NOTE | 2024-01-12 15:39 | Hospitalist Progress Note ---
Date of Service January 12, 2024 Assessment & Plan (1) Acute hypoxemic respiratory failure: Plan: 53-year-old female with history of COPD presenting with 2 weeks of progressive dyspnea on exertion. Acute hypoxic respiratory failure upon arrival with saturation of 81% on room air, ambulatory saturation documented to be 71%. patient does raise concern for weight gain, edema and the feeling of "fullness and fluid" in her chest. no prior history of CHF. differential diagnosis includes COPD exacerbation, Acute diastolic CHF. Consideration to be given to pulmonary emboli however, patient states she is fully compliant with her Xarelto -placed on nasal cannula, tolerating well. Wean slowly back if possible to room air -Monitor I&O's, daily weights -Lasix 20mg IV x 2 given -Following 1st dose 01/10: patient had ~3kg drop -second dose given 01/11 -patient may require diuretic therapy upon discharge. -BNP reviewed 01/10: 287 -Troponin reviewed 01/10: 22.96 -> 20 -likely demand ischemia -Echocardiogram reviewed 01/11: -LV systolic function normal -Grade I diastolic dysfunction -RV moderately dilated -RV systolic function mildly reduced -RV systolic pressure elevated at 30-40mmHg -IVC mildly dilated -CBC/BMP reviewed 01/11: stable -albuterol as needed -continue Trelegy (2) Type 2 diabetes mellitus: Plan: chronic. Patient reports she is on 75 units of Lantus daily as well as Metformin. Last HgbA1C from 06/30/23=6.7 -Hold Meformin Lantus 30 units twice daily Insulin sliding scale Goal blood sugar 110-140 Plan Hypertension -Continue Lisinopril 20mg po BID Hyperlipidemia -Continue Simvastatin Admission and Anticipated Discharge Date Admission Date: January 11, 2024 Subjective Patient seen and examined this morning. Patient reports to be doing okay today. She does notice b/l LE edema but notes it has improved since Lasix. Patient reports no shortness of breath and has been doing okay on the nasal cannula. She does still feel some chest heaviness but notes this has also improved after the Lasix. Physical Exam 2 Constitutional: WD/WN, vitals as above Eyes: PERRL, conjunctivae normal, anicteric sclerae Respiratory: rales b/l Cardiovascular: RRR. no murmur. b/l LE edema 1+ Skin: no rashes, warm and dry Psychiatric: A+Ox3, euthymic affect Results & Data Results & Data Vital Signs (Past 12 Hours) Vital Signs Temp Pulse Pulse Resp BP Pulse Ox O2 Del Method 01/12/24 11:45 37.1 C 86 22 123/80 93 Nasal Cannula 01/12/24 08:11 94 Nasal Cannula 01/12/24 08:03 36.8 C 88 24 120/70 91 Nasal Cannula 01/12/24 07:40 Nasal Cannula O2 Flow Rate 01/12/24 11:45 01/12/24 08:11 01/12/24 08:03 01/12/24 07:40 2 Laboratory Results 01/12/24 09:09 01/12/24 09:09 Diagnostic Findings Chest X-Ray 01/11/24 17:13 XR chest 1V portable HISTORY: 53 years-old Female Dyspnea acute shortness of breath COMPARISON: 09/03/2021 TECHNIQUE: AP view of the chest FINDINGS: Cardiac silhouette is enlarged. Mild subsegmental bibasilar densities. No pneumothorax or large pleural effusion. Bones appear grossly intact. IMPRESSION: 1. Mild cardiomegaly without acute process. 2. Subsegmental bibasilar densities are likely atelectatic. ACT 112: Negative or not required by law. The above report was generated using voice recognition software. It may contain grammatical, syntax or spelling errors. Electronically signed by: Kaveh Rey M.D. 01/11/2024 7:11 PM PG Care Time/CCT Total # of Minutes Spent Total Time Spent with Patient: Total time spent is greater than 50% in coordination of care (as documented) at patient's floor/unit and/or counseling patient: Coding Level of Care Code 24519 SUB INP/OBS CARE 2/35MIN Diagnoses Acute hypoxemic respiratory failure J96.01 Type 2 diabetes mellitus with diabetic microalbuminuria, with long-term current use of insulin E11.29; R80.9; Z79.4 Diabetes mellitus complication detail: with diabetic microalbuminuria Diabetes mellitus complication status: with kidney complications Diabetes mellitus fpc insulin use: with terminal gauger use (2) Type 2 diabetes mellitus Diabetes mellitus complication detail: with diabetic microalbuminuria D iabetes mellitus complication status: with kidney complications Diabetes mellitus terminal gauger insulin use: with terminal gauger use Qualified Code(s): E11.29 - Type 2 diabetes mellitus with other diabetic kidney complication; R80.9 - Proteinuria, unspecified; Z79.4 - oysterman (current) use of insulin
[2024-01-12] MEDS: valACYclovir HCL 500 MG TABLET PO SCH (21:54)
[2024-01-13 09:49] LABS: Calcium 8.4 mg/dl (8.6-10.3); Creatinine Clr Calc Pharmacy 73.2 ml/min; Est GFR (African American) 102.3 ml/min; Est GFR (Non-African American) 88.3 ml/min; Potassium 4.4 mmol/L (3.5-5.1)
[2024-01-13] MEDS: FUROSEMIDE 40 MG/4 ML VIAL IV ONE (12:35)
--- NOTE | 2024-01-13 13:58 | Hospitalist Progress Note ---
Date of Service January 13, 2024 Assessment & Plan (1) Acute hypoxemic respiratory failure: Plan: 53-year-old female with history of COPD presenting with 2 weeks of progressive dyspnea on exertion. Acute hypoxic respiratory failure upon arrival with saturation of 81% on room air, ambulatory saturation documented to be 71%. patient does raise concern for weight gain, edema and the feeling of "fullness and fluid" in her chest. no prior history of CHF. differential diagnosis includes COPD exacerbation, Acute diastolic CHF. Consideration to be given to pulmonary emboli however, patient states she is fully compliant with her Xarelto -placed on nasal cannula, tolerating well. Wean slowly back if possible to room air -Monitor I&O's, daily weights -Lasix 20mg IV x 2 given -Lasix 40mg IV x 1 given 01/12 patient continues to decrease in weight w/ therapy patient will likely require lasix upon discharge. -BNP reviewed 01/12: 148 -Troponin reviewed 01/10: 22.96 -> 20 -likely demand ischemia -Echocardiogram reviewed 01/11: -LV systolic function normal -Grade I diastolic dysfunction -RV moderately dilated -RV systolic function mildly reduced -RV systolic pressure elevated at 30-40mmHg -IVC mildly dilated -CBC/BMP reviewed 01/12: stable -albuterol as needed -continue Trelegy -Two step completed 01/12 recommending 2L O2 via nasal cannula while ambulating unfortunately patient cannot obtain home oxygen until 01/14 will re-try ambulatory testing 01/13 to see if patient improves - she would like to try to avoid going home on oxygen if possible (2) Type 2 diabetes mellitus: Plan: chronic. Patient reports she is on 75 units of Lantus daily as well as Metformin. Last HgbA1C from 06/30/23=6.7 -Hold Meformin Lantus 30 units twice daily Insulin sliding scale Goal blood sugar 110-140 Plan Hypertension -Continue Lisinopril 20mg po BID Hyperlipidemia -Continue Simvastatin Admission and Anticipated Discharge Date Admission Date: January 11, 2024 Subjective Patient seen and examined this morning. Patient reports to be feeling okay today. She has decreased edema in her b/l LE. She denies SOB or chest pain. Two step study showed patient should have 2L oxygen while ambulating. Unfortunately due to insurance reasons, oxygen could not be arranged until Monday. Physical Exam 2 Constitutional: WD/WN, vitals as above Eyes: PERRL, conjunctivae normal, anicteric sclerae Respiratory: rales b/l Cardiovascular: RRR. no murmur. b/l LE edema 1+ Skin: no rashes, warm and dry Psychiatric: A+Ox3, euthymic affect Results & Data Results & Data Vital Signs (Past 12 Hours) Vital Signs Temp Pulse Pulse Pulse Pulse Pulse Resp 01/13/24 11:13 101 H 97 H 99 H 93 H 01/13/24 07:44 01/13/24 06:59 36.6 C 100 H 20 Resp Resp Resp BP Pulse Ox Pulse Ox Pulse Ox 01/13/24 11:13 18 18 18 88 L 90 01/13/24 07:44 01/13/24 06:59 119/77 92 Pulse Ox Pulse Ox O2 Del Method O2 Flow Rate O2 Flow Rate O2 Flow Rate 01/13/24 11:13 87 L 90 1 2 01/13/24 07:44 Nasal Cannula 1 01/13/24 06:59 Nasal Cannula 2.0 Laboratory Results 01/12/24 09:09 01/13/24 05:37 PG Care Time/CCT Total # of Minutes Spent Total Time Spent with Patient: Total time spent is greater than 50% in coordination of care (as documented) at patient's floor/unit and/or counseling patient: Coding Level of Care Code 28603 SUB INP/OBS CARE 2/35MIN Diagnoses Acute hypoxemic respiratory failure J96.01 Type 2 diabetes mellitus with diabetic microalbuminuria, with long-term current use of insulin E11.29; R80.9; Z79.4 Diabetes mellitus complication detail: with diabetic microalbuminuria Diabetes mellitus complication status: with kidney complications Diabetes mellitus senior living insulin use: with manager terminal use (2) Type 2 diabetes mellitus Diabetes mellitus complication detail: with diabetic microalbuminuria D iabetes mellitus complication status: with kidney complications Diabetes mellitus manager terminal insulin use: with senior living use Qualified Code(s): E11.29 - Type 2 diabetes mellitus with other diabetic kidney complication; R80.9 - Proteinuria, unspecified; Z79.4 - manager terminal (current) use of insulin
[2024-01-14 06:32] LABS: BUN Creatinine Ratio 36.8 (10-20); Calcium 8.6 mg/dl (8.6-10.3); Creatinine Clr Calc Pharmacy 81.8 ml/min; Est GFR (African American) 114.1 ml/min; Est GFR (Non-African American) 98.5 ml/min; Potassium 4.1 mmol/L (3.5-5.1)
--- NOTE | 2024-01-14 12:49 | Hospitalist Progress Note ---
Date of Service January 14, 2024 Assessment & Plan (1) Acute hypoxemic respiratory failure: Plan: 53-year-old female with history of COPD presenting with 2 weeks of progressive dyspnea on exertion. Acute hypoxic respiratory failure upon arrival with saturation of 81% on room air, ambulatory saturation documented to be 71%. patient does raise concern for weight gain, edema and the feeling of "fullness and fluid" in her chest. no prior history of CHF. differential diagnosis includes COPD exacerbation, Acute diastolic CHF. Consideration to be given to pulmonary emboli however, patient states she is fully compliant with her Xarelto -placed on nasal cannula, tolerating well. Wean slowly back if possible to room air -Monitor I&O's, daily weights -Lasix 20mg IV x 2 given -Lasix 40mg IV x 1 given 01/12 patient continues to decrease in weight w/ therapy patient will likely require lasix upon discharge. - could consider Lasix 40mg every other day -BNP reviewed 01/13: 77 -Troponin reviewed 01/10: 22.96 -> 20 -likely demand ischemia -Echocardiogram reviewed 01/11: -LV systolic function normal -Grade I diastolic dysfunction -RV moderately dilated -RV systolic function mildly reduced -RV systolic pressure elevated at 30-40mmHg -IVC mildly dilated -CBC/BMP reviewed 01/13: stable -albuterol as needed -continue Trelegy -Two step completed 01/12 recommending 2L O2 via nasal cannula while ambulating unfortunately patient cannot obtain home oxygen until 01/14 (2) Type 2 diabetes mellitus: Plan: chronic. Patient reports she is on 75 units of Lantus daily as well as Metformin. Last HgbA1C from 06/30/23=6.7 -Hold Meformin Lantus 30 units twice daily Insulin sliding scale Goal blood sugar 110-140 Plan Hypertension -Continue Lisinopril 20mg po BID Hyperlipidemia -Continue Simvastatin Ancipitate discharge home 01/14 Patient requesting work excuse upon discharge. Admission and Anticipated Discharge Date Admission Date: January 11, 2024 Subjective Patient seen and examined today. Patient reports to be feeling well. Denies shortness of breath or chest pain. Notes b/l LE edema has subsided since Lasix. Physical Exam 2 Constitutional: WD/WN, vitals as above Eyes: PERRL, conjunctivae normal, anicteric sclerae Respiratory: normal respiratory effort, lungs clear to auscultation Cardiovascular: RRR, no murmur, no edema Skin: no rashes, warm and dry Psychiatric: A+Ox3, euthymic affect Results & Data Results & Data Vital Signs (Past 12 Hours) Vital Signs Temp Pulse Resp BP BP Pulse Ox O2 Del Method 01/14/24 10:37 97 H 18 101/69 93 Nasal Cannula 01/14/24 09:32 94 Nasal Cannula 01/14/24 08:15 107 H 19 94/68 L 87 L Nasal Cannula 01/14/24 08:00 Nasal Cannula 01/14/24 07:37 36.5 C 110 H 20 96/65 L 90 Nasal Cannula O2 Flow Rate 01/14/24 10:37 1 01/14/24 09:32 2 01/14/24 08:15 1 01/14/24 08:00 2 01/14/24 07:37 1.5 Laboratory Results 01/12/24 09:09 01/14/24 05:33 PG Care Time/CCT Total # of Minutes Spent Total Time Spent with Patient: Total time spent is greater than 50% in coordination of care (as documented) at patient's floor/unit and/or counseling patient: Coding Level of Care Code 65745 SUB INP/OBS CARE 2/35MIN Diagnoses Acute hypoxemic respiratory failure J96.01 Type 2 diabetes mellitus with diabetic microalbuminuria, with long-term current use of insulin E11.29; R80.9; Z79.4 Diabetes mellitus complication detail: with diabetic microalbuminuria Diabetes mellitus complication status: with kidney complications Diabetes mellitus penitentiary insulin use: with penitentiary use (2) Type 2 diabetes mellitus Diabetes mellitus complication detail: with diabetic microalbuminuria D iabetes mellitus complication status: with kidney complications 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
[2024-01-15 07:11] LABS: BUN Creatinine Ratio 32.2 (10-20); Calcium 8.4 mg/dl (8.6-10.3); Creatinine Clr Calc Pharmacy 94.6 ml/min; Est GFR (African American) 119.6 ml/min; Est GFR (Non-African American) 103.2 ml/min; Potassium 4.3 mmol/L (3.5-5.1)
[2024-01-15 07:16] VITALS: BP 108/77; PULSE 81; RESP 20; TEMP 97.3; O2SAT 92
[2024-01-15] MEDS: FUROSEMIDE 20 MG TAB PO SCH (09:37)
--- NOTE | 2024-01-15 15:46 | Discharge Summary ---
Discharge Summary Date of Service January 15, 2024 Principal Dx & Hospital Course #1 = Principal Diagnosis (1) Acute hypoxemic respiratory failure: 53-year-old female with history of COPD presenting with 2 weeks of progressive dyspnea on exertion. Acute hypoxic respiratory failure upon arrival with saturation of 81% on room air, ambulatory saturation documented to be 71%. patient does raise concern for weight gain, edema and the feeling of "fullness and fluid" in her chest. no prior history of CHF. differential diagnosis includes COPD exacerbation, Acute diastolic CHF. Consideration to be given to pulmonary emboli however, patient states she is fully compliant with her Xarelto - patient responded well to IV diuresis -Discharged home with Lasix 20 mg every morning -Troponin reviewed 01/10: 22.96 -> 20 -likely demand ischemia -Echocardiogram: normal LV function, grade I diastolic dysfunctiom, RV systolic pressure elevated at 30-40mmHg -continue Trelegy, albuterol as needed patient has been weaned down to room air at rest -Two step completed 01/12 - recommending 2L O2 via nasal cannula while ambulating - home oxygen arranged dispo: Discharged home today, with CHF clinic follow-up and PCP follow-up. Discussed monitoring daily weights, low-sodium diet, continuing compression stockings and leg elevation. (2) Type 2 diabetes mellitus: chronic. Patient reports she is on 75 units of Lantus daily as well as Metformin. Last HgbA1C from 06/30/23=6.7 Continue home Lantus and metformin at discharge Plan Hypertension -Continue Lisinopril 20mg po BID Hyperlipidemia -Continue Simvastatin dispo: Discharged to home today Notes For Next Care Provider admitted for shortness of breath and hypoxia, found to be fluid overloaded. Responded well to Lasix, discharged with 20 mg p.o. daily Also to step for 2 L of oxygen with activity, home oxygen arranged Admission HPI Per Admitting Provider 53yo female with history of COPD and tobacco use presenting to the ER at the request of Pulmonology for 2 weeks of shortness of breath. The patient does not use supplemental O2. She reports progressive dyspnea on exertion for the last two weeks. She has a stable, chronic cough which has been slightly more productive - no hemoptysis, no chest pain, no wheeze. She denies improvement with use of her inhalers or Albuterol. patient was seen in the pulmonary office today with these complaints. She was noted to be conversationally dyspneic, hypoxic at 81% on room air. 6-minute walk test attempted and patient became hypoxic to 71% after 2 minutes of ambulation. Patient was encouraged to come to the emergency room for additional workup. During my encounter, patient reports that she feels "full". She notes some swelling in her legs bilaterally as well as the feeling of fullness in her chest. She also thinks she may have gained some weight, approximately 5 pounds over the last couple of weeks. She denies chest pain or leg pain. No URI symptoms or allergy symptoms. She reports that she is fully compliant with her Xarelto and has not missed any doses In the ER patient hypoxic on room air at 81%. Supplemental oxygen placed at 2 L with improvement in oxygenation ER course: No therapies given Discharge Exam General: NAD, VS as above Resp: normal respiratory effort, lungs clear to auscultation. on room air at rest CV: RRR, no murmur, Abd: normal bowel sounds, non tender, no hepatosplenomegaly Extremities: Moves all extremities, traced edema Neuro: A&O x3, Skin: intact, no lesions noted Discharge Plan Discharge Items Patient Disposition: Home - Self-Care Reason For Visit: SOB POSSIBLE CHF Discharge Diagnosis: Acute diastolic HF Activity: Resume your previous activity Weightbearing: Full weightbearing Non-emergency contact: Primary Care Provider and Radiologic Technologist Call non-emergency contact if: you have any medication questions and your symptoms worsen Follow-up/Referrals: Kasandra Mclaughlin PA-C [Physician Auto Garage Attendant] - (f/u CHF clinic) Irish Baxter MD [Primary Care Provider] - 01/24/24 11:00 am (follow up within 1 week ) Diet: Carb Consistent or DM2 and Low Sodium (2gm) Addtl Attending Provider Instructions: Ms. Van, You were hospitalized after worsening shortness of breath, found to be fluid ove rloaded, consistent with acute heart failure. Initially, you were requiring oxygen but have weaned down to just needing this with activity at 2L. You have responded well to IV diuresis, and will continue on lasix 20mg every morning. No other changes to your home medications. You will be set up with the heart failure clinic for further monitoring. There is some additional information below. You should also follow up with your PCP in one week. ----- Call 911 and go to the Emergency Room if: * You have tightness or pain in your chest that does not go away with rest. * You are very short of breath even with rest Call your doctor if any of the following symptoms or problems start or get worse: * Shortness of breath or difficulty breathing * Wake up at night short of breath * Chest pain * Cough * Swelling of your hands, fee, or legs * More fatigued or tired with your normal activity * Palpitations - sudden fast heart beats WEIGHT * Weigh yourself every morning after using the bathroom. * Use the same scale. * Wear the same amount of clothing. * Write your weight down on your chart. * Call your doctor if you gain more than 2-3 pounds in 1-2 days or 5 pounds in a week. . MEDICATIONS * Use this discharge instruction sheet for instructions. * Take your medications at the time your doctor ordered. * Do not skip a dose of your medicines. * If you miss a dose of medicine, take as soon as possible, but DO NOT DOUBLE A DOSE. * Read your medicine information when you get home. * Know all of the side effects of your medicine. * Call your doctor's office if you have any side effects. * Be sure all of your doctors know what medicine and herbs you take (including cold, flu, and herbal medicine). Take the following with you to your follow-up doctor appointments: * Weight Chart * Medication List * List of questions Do not drink excessive alcohol, beer or wine. Limit salt intake to 2grams per day. - things that are high in sodium include deli meats, canned soups, frozen dinners, fried food Recommend wearing compression stocking while working. Pending Studies at Discharge: No Stand-Alone Forms: My [facility], Work/School Release, Smoking Cessation Medications and DC Order Prescriptions: New furosemide 20 mg Tablet 20 mg PO QAM 30 Days Qty: 30 1RF Continued ipratropium bromide 0.02 % solution 2.5 ml INH Q6H PRN (Reason: shortness of breath or wheezing) Qty: 150 3RF Rx Instructions: use with levalbuterol nebulizer solution J44.1 - COPD simvastatin 40 mg tablet 40 mg PO DAILY Qty: 30 11RF montelukast 10 mg tablet 10 mg PO DAILY Qty: 90 3RF paroxetine HCl 10 mg tablet 10 mg PO DAILY Qty: 90 3RF albuterol sulfate 90 mcg/actuation aerosol powdr breath activated 2 inh inhalation Q6H PRN (Reason: shortness of breath or wheezing) Qty: 1 3RF lisinopril 20 mg tablet 20 mg PO BID Qty: 60 11RF Xarelto 20 mg tablet 20 mg PO DAILY Qty: 90 3RF Trulicity 4.5 mg/0.5 mL pen injector 4.5 mg SUBCUT WK Qty: 6 3RF Levemir FlexPen 100 unit/mL (3 mL) insulin pen 70 unit subcut DAILY Qty: 75 1RF Farxiga 10 mg tablet 10 mg PO DAILY Qty: 90 3RF (DME) FreeStyle Rae 2 Sensor Kit See Rx Instructions .ROUTE .MEDSUPPLY Qty: 2 11RF Rx Instructions: Change q 14 days to monitor blood sugars. metformin 1,000 mg tablet 1,000 mg PO BID Qty: 60 1RF Rx Instructions: Pt must keep appt for further refills Trelegy Ellipta 100-62.5-25 mcg blister with device 1 inh inhalation DAILY 90 Days Qty: 90 3RF insulin aspart U-100 [Novolog FlexPen U-100 Insulin] 100 unit/mL (3 mL) insulin pen 10 unit subcut TID Qty: 15 4RF Rx Instructions: Inject 10 units into the abdomen 10-15 minutes before meals. valacyclovir 500 mg tablet 500 mg PO HS Qty: 90 3RF Discharge Orders: Discharge Order (Routine); Ordered 01/15/24 Ordered By: Sheri Diaz/Other Patient Handouts: Heart Failure Make Changes Diet, Heart Failure Dc Admission Data Admit Date/Time: 01/11/24 22:09 Attending Provider: Tyrel Canela Admit Provider: Becky Becker Primary Care Provider: Irish Baxter Other Providers: Becky Becker; Kasandra Mclaughlin Other Interventions: Discharge Summary Assessment (RN) Last Done: 01/15/24 12:47 Hospital Stay Data Consultations 01/11/24 21:29 ED Decision to Admit Stat 01/15/24 13:03 [facility] CHF Program Referral Routine Pending Results Patient Have Any Pending Studies at Discharge: No Discharge Instructions Given to Patient (Per Discharging Provider) Ms. Van, You were hospitalized after worsening shortness of breath, found to be fluid overloaded, consistent with acute heart failure. Initially, you were requiring oxygen but have weaned down to just needing this with activity at 2L. You have responded well to IV diuresis, and will continue on lasix 20mg every morning. No other changes to your home medications. You will be set up with the heart failure clinic for further monitoring. There is some additional information below. You should also follow up with your PCP in one week. ----- Call 911 and go to the Emergency Room if: * You have tightness or pain in your chest that does not go away with rest. * You are very short of breath even with rest Call your doctor if any of the following symptoms or problems start or get worse: * Shortness of breath or difficulty breathing * Wake up at night short of breath * Chest pain * Cough * Swelling of your hands, fee, or legs * More fatigued or tired with your normal activity * Palpitations - sudden fast heart beats WEIGHT * Weigh yourself every morning after using the bathroom. * Use the same scale. * Wear the same amount of clothing. * Write your weight down on your chart. * Call your doctor if you gain more than 2-3 pounds in 1-2 days or 5 pounds in a week. . MEDICATIONS * Use this discharge instruction sheet for instructions. * Take your medications at the time your doctor ordered. * Do not skip a dose of your medicines. * If you miss a dose of medicine, take as soon as possible, but DO NOT DOUBLE A DOSE. * Read your medicine information when you get home. * Know all of the side effects of your medicine. * Call your doctor's office if you have any side effects. * Be sure all of your doctors know what medicine and herbs you take (including cold, flu, and herbal medicine). Take the following with you to your follow-up doctor appointments: * Weight Chart * Medication List * List of questions Do not drink excessive alcohol, beer or wine. Limit salt intake to 2grams per day. - things that are high in sodium include deli meats, canned soups, frozen dinners, fried food Recommend wearing compression stocking while working. Total Time Total Time Spent Total Time Spent (In Minutes): Time spent day of discharge 40 minutes including direct patient care, medication reconciliation, documentation, review of labs and images, and coordination of care. 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
== END 2024-01-15 13:23 | disposition home or self-care (01) | DRG 291 ==
LOC: ED 16:52 → SUATTDRO 22:09 → 3W 22:09